=== PATIENT | female | born 1980 | race Caucasian/White ===

== ENCOUNTER 2018-06-13 15:42 | Outpatient (CLI) | payer MEDICAID, SELFPAY ==
--- NOTE | 2018-06-13 16:15 | DI.RAD_ITS ---
SYMPTOM/DIAGNOSIS: WORSENING BRONCHITIS IN SMOKER, LOWER RESPIRATORY TRACT INFECTION, J22 PA AND LATERAL CHEST: The lungs are free of infiltrate. There is no pleural effusion. The cardiovascular structures are intact. SUMMARY: There is no evidence of acute cardiopulmonary disease.
[2018-06-13 16:31] LABS: Abs Immature Grans 0.02 k/cumm (0.0-0.09); Absolute Basophil Count 0.03 k/cumm (0.0-0.2); Absolute Eosinophil Count 0.04 k/cumm (0.0-0.7); Absolute Lymphocyte Count 3.17 k/cumm (1.2-3.4); Absolute Monocyte Count 0.64 k/cumm (0.11-0.7); Absolute Neutrophil Count 6.77 k/cumm (1.2-6.7); Basophils % 0.3; Eosinophils % 0.4; HCT 39.2 % (36.0-46.0); HGB 13.5 g/dL (12.0-15.5); Immature Grans % 0.2; Lymphocytes % 29.7; Mean Corp. HGB Concentration 34.4 g/dL (32.0-36.0); Mean Corpuscular Hemoglobin 31.6 pg (27.0-33.0); Mean Corpuscular Volume 91.8 fL (80-95); Mean Platelet Volume 10.1 fL (8.0-11.0); Neutrophils % 63.4; Platelet Count 235 x1000/uL (130-400); RBC 4.27 m/cumm (4.00-5.20); White Blood Cell Count 10.67 k/cumm (4.4-10.8)
== END 2018-06-13 16:02 ==
PROVIDERS: PCP Nurse Practitioner Family; Visit Provider Family Medicine
DX: J22 Unspecified acute lower respiratory infection (principal); F17.200 Nicotine dependence, unspecified, uncomplicated
CPT/HCPCS: 36415; 71046; 85025

== ENCOUNTER 2018-09-04 15:52 | Emergency (ER) | payer MEDICAID, SELFPAY ==
[2018-09-04 16:01] VITALS: BP 140/71; PULSE 76; RESP 16; TEMP 37.6; O2SAT 98
--- NOTE | 2018-09-04 16:32 | ED.GENADUL_ITS ---
Discharge Plan Disposition Patient Disposition: HOME Condition: Stable Discharge Details Chief Complaint: RespSymp Clinical Impression: Acute serous otitis media of right ear, Allergic rhinitis, Smoker Primary Care Provider: Carol Johnson ED Provider: Justice Packer Home Meds and New Rx's Prescriptions: Continued benzonatate 100 mg capsule 100 - 200 mg PO TID PRN (Reason: cough) Qty: 60 RF: 0 fluticasone 50 mcg/actuation spray,suspension 2 spray NS DAILY PRN (Reason: allergy symptoms) Qty: 19.8 RF: 4 ProAir HFA 90 mcg/actuation HFA aerosol inhaler 2 puff Inhalation Q4H PRN Qty: 1 RF: 11 inhalational spacing device [Space Chamber Plus] 1 EACH spacer Miscellaneous BID Qty: 1 RF: 0 loratadine [Claritin] 10 MG tablet 10 mg PO DAILY Qty: 90 RF: 3 Flovent HFA 12 GM HFA aerosol inhaler 1 puff Inhalation BID Qty: 1 RF: 3 cetirizine [Zyrtec] 10 MG tablet 10 mg PO DAILY RF: 0 bupropion HCl 150 MG tablet extended release 24 hr 300 mg PO DAILY Qty: 180 RF: 4 Discharge Instructions Instructions: Serous Otitis Media (ED) Additional Instructions: Feel free to return to the emergency department for any new or worsening symptoms. The symptoms may include fever chills, drainage from the ear, or any other concerns. Otherwise follow-up with primary care provider or ENT if not improving over the next couple weeks Referrals: Carol Johnson NP [Primary Care Provider] - Vikash Le DO [OSTEOPATHIC DOCTOR] - Discharge Data Discharge Date/Time-TO BE ENTERED AT DEPARTURE: 09/04/18 16:39 Medical Decision Making Patient presenting the emergency department for chief complaint of right ear pain. Patient states that this is been going on for the past 3 weeks. Patient denies any known fever chills but does state she gets hot flashes which she attributes to her partial hysterectomy. Patient had seen primary care provider 3 weeks ago and was placed upon amoxicillin for what she reports as an ear infection but she is coming in due to the fact that she does not feel her symptoms have improved. She does state some irritability and overall malaise. She does also report ongoing allergies and on multiple allergy medications that lead to nasal congestion. Patient is also a smoker. Physical exam shows dullness and fluid behind the right TM otherwise physical exam is unremarkable. No signs of meningitis, mastoiditis, retropharyngeal or peritonsillar abscess. I had thorough discussion with patient about serous otitis media that it feels related to her ongoing nasal congestion, patient was encouraged to continue to use Flonase, nasal saline, and to follow-up with primary care provider or ENT if this persists over the next 2-3 weeks. Patient was informed of warning signs to return such as fever chills, nuchal rigidity, or any significant worsening of symptoms. After discussion of diagnosis and plan of care patient has no further needs, questions, or concerns and states clear understanding to return to the emergency department for any worsening symptoms. HPI General Mode of arrival: ambulatory . Date/Time Provider Initiated Documentation: 09/04/18 16:05 . Limitations to Documentation: no limitations . Information obtained by: patient and RN notes reviewed . History of Present Illness 37 year old F presents to the emergency department with the chief complaint of right ear pain, described as moderate, with intensity rated at 5. Quality is described as aching, and is localized to the face (right ear). Patient reports no radiation. Patient started experiencing this week(s) (3) and it has been constant. No relieving factors improve symptom(s), No exacerbating factors reported . Patient did receive the following treatments prior to arrival, none Related Data Home Medications Medication Instructions Recorded Confirmed inhalational spacing device [Space #1 09/15/17 07/26/18 Chamber Plus] loratadine [Claritin] 10 mg PO DAILY #90 tab-cap 09/15/17 09/04/18 Flovent HFA 1 puff INHALATION BID #1 inhaler 11/16/17 09/04/18 cetirizine [Zyrtec] 10 mg PO DAILY tab-cap 12/30/17 09/04/18 bupropion HCl 300 mg PO DAILY #180 tab-cap 01/17/18 09/04/18 albuterol sulfate HFA 90 2 puff INHALATION Q4H PRN #1 06/06/18 09/04/18 mcg/actuation aerosol inhaler inhaler benzonatate 100 mg capsule 100 - 200 mg PO TID PRN #60 cap 12/07/18 01/21/19 fluticasone 50 mcg/actuation nasal 2 spray NS DAILY PRN #19.8 gm 07/21/18 09/04/18 spray,suspension Previous Rx's Medication Instructions Recorded loratadine [Claritin] 10 mg PO DAILY #90 tab-cap 09/15/17 Flovent HFA 1 puff INHALATION BID #1 inhaler 11/16/17 bupropion HCl 300 mg PO DAILY #180 tab-cap 01/17/18 albuterol sulfate HFA 90 2 puff INHALATION Q4H PRN #1 06/06/18 mcg/actuation aerosol inhaler inhaler benzonatate 100 mg capsule 100 - 200 mg PO TID PRN #60 cap 07/21/18 fluticasone 50 mcg/actuation nasal 2 spray NS DAILY PRN #19.8 gm 07/21/18 spray,suspension Allergies Allergy/AdvReac Type Severity Reaction Status Date / Time Influenza Virus Vaccines Allergy Intermediate vomiting Verified 09/04/18 16:05 doxycycline AdvReac Intermediate GI UPSET Verified 09/04/18 16:05 Birch Trees Allergy Mild Uncoded 09/04/18 16:05 Rabbits Allergy Mild Uncoded 09/04/18 16:05 General Stated Complaint: RespSymp WIN: 4 Review of Systems Constitutional Denies body ache(s), Denies chills, Denies fever(s), Reports headache(s) and Reports malaise Eyes Denies eye discharge ENT Reports otalgia, Reports headache(s), Reports nasal congestion, Denies neck pain, Reports post nasal drip, Reports sore throat and Denies throat swelling Cardiovascular Denies chest pain and Denies dyspnea Respiratory Denies chest congestion, Denies cough and Denies dyspnea Musculoskeletal Denies joint swelling and Denies neck pain Integumentary/Breasts Denies rash Neurologic Reports headache(s) Allergic/Immunologic Denies throat swelling [facility] Surgical History Appendectomy (~2004) Arthroplasty of knee (~2005) Cholecystectomy (~2004) Correction, Hammertoe Hysterectomy, Laproscopic (~2005) Family History Mother Essential hypertension Depression Father Essential hypertension Heart disease Hyperlipidemia Chronic obstructive lung disease Asthma Grandfather Neoplasm Brother No problems noted. Grandfather Diabetes Grandmother Kassandra Gehrigs disease Grandmother Hyperlipidemia Daughter Asthma Daughter No problems noted. Social History Smoking/Tobacco Use Status: Current every day Exam Const General: cooperative, comfortable and no acute distress Orientation: alert and awake [facility] Head: normal to inspection, normocephalic and atraumatic Ears: hearing grossly normal bilaterally, external ears normal, TM normal on the left, mastoids normal and TM abnormal dull on the right and with fluid behind the TM on the right General nose exam: external nose normal Face and sinus: no erythema and sinus tenderness frontal and maxillary Mouth: oral mucosae normal, no drooling, no muffled voice and no trismus Throat: posterior oropharynx normal Neck Neck: normal visual inspection, full ROM, no lymphadenopathy, no meningeal signs, trachea midline and supple Resp Effort & Inspection: normal respiratory effort and able to speak in complete sentences Auscultation: clear to auscultation bilaterally Cardio Rate: regular rate Rhythm: regular rhythm Heart Sounds: S1 normal, S2 normal, normal S1 and S2, no click, no gallops, no murmurs and no rubs Skin General skin exam: no rashes or lesions noted and dry skin (warm) Neuro General: alert, awake, oriented x3, gait normal and moves all extremities Cognition: normal cognition Speech: speech normal Course Vital Signs Temperature 37.6 C H 09/04/18 16:01 Pulse 76 09/04/18 16:01 Respiratory Rate 16 09/04/18 16:01 Blood Pressure 140/71 09/04/18 16:01 Pulse Oximetry 98 09/04/18 16:01 Temperature 37.6 C H 09/04/18 16:01 Temperature Source Skin 09/04/18 16:01 Pulse 76 09/04/18 16:01 Respiratory Rate 16 09/04/18 16:01 Respiratory Effort Non-Labored 09/04/18 16:01 Blood Pressure 140/71 09/04/18 16:01 Blood Pressure Position Sitting 09/04/18 16:01 Pulse Oximetry 98 09/04/18 16:01 Oxygen Delivery Method Room Air 09/04/18 16:01 Oxygen Flow Rate 0 09/04/18 16:01 Pain Level 7 09/04/18 16:01
== END 2018-09-04 16:39 | disposition home or self-care (01) ==
PROVIDERS: Emergency Provider Nurse Practitioner Family; PCP Nurse Practitioner Family
DX: H65.01 Acute serous otitis media, right ear (principal); J30.89 Other allergic rhinitis; F17.210 Nicotine dependence, cigarettes, uncomplicated
CPT/HCPCS: 99282

== ENCOUNTER 2019-03-22 08:21 | Outpatient (CLI) | payer MEDICAID, SELFPAY ==
[2019-03-22 09:34] LABS: Anion Gap 7.9 mmol/L (3-11); BUN 11 mg/dL (7-18); CO2 27.1 mmol/L (21.0-32.0); CREATININE 0.94 mg/dL (0.55-1.02); Chloride 105 mmol/L (98-107); Glucose 100 mg/dL (70-100); Potassium 4.2 mmol/L (3.5-5.1); Sodium 140 mmol/L (136-145)
[2019-03-22 10:12] LABS: Calculated LDL 147 mg/dL; Cholesterol 196 mg/dL (50-200); HDL Cholesterol 37 mg/dL (40-60); Triglyceride 60 mg/dL (30-150)
== END 2019-03-22 08:41 ==
PROVIDERS: PCP Nurse Practitioner Family; Visit Provider Nurse Practitioner Family
DX: E78.5 Hyperlipidemia, unspecified (principal)
CPT/HCPCS: 36415; 80048; 80061; 83721

== ENCOUNTER 2019-06-01 10:58 | Outpatient (CLI) | payer MEDICAID, SELFPAY ==
[2019-06-04 11:21] LABS: HBs Antibody, Quant <3.1 mIU/mL; Hep B Surface Ab Negative; Hepatitis B Core Antibody Negative (NEGAT); Hepatitis B Surface Antigen Negative (NEGAT)
== END 2019-06-01 11:18 ==
PROVIDERS: PCP Nurse Practitioner Family; Visit Provider Nurse Practitioner Family
DX: Z11.59 Encounter for screening for other viral diseases (principal)
CPT/HCPCS: 36415; 86704; 86706; 87340

== ENCOUNTER 2019-09-05 13:51 | Outpatient (CLI) | payer MEDICAID, SELFPAY ==
--- NOTE | 2019-09-05 13:47 | DI.RAD_ITS ---
EXAM: XR CHEST 2V PA LATERAL CLINICAL HISTORY: Continued cough despite steriods and abx, R05. TECHNIQUE: 2D digital imaging was performed. COMPARISON: XR CHEST 2V PA LATERAL from 06/13/2018 FINDINGS: LUNGS: Clear. No pleural abnormality seen. HEART: Normal. MEDIASTINUM: Normal. OTHER FINDINGS:Normal. BONE:Normal. IMPRESSION: No acute pulmonary findings.
== END 2019-09-05 14:11 ==
PROVIDERS: PCP Nurse Practitioner Family; Visit Provider Nurse Practitioner Family
DX: R05 Cough (principal); Z79.2 Long term (current) use of antibiotics
CPT/HCPCS: 71046

== ENCOUNTER 2019-12-24 09:45 | Outpatient (CLI) | payer MEDICAID, SELFPAY ==
[2019-12-25 21:08] LABS: COVID-19 RT-PCR UVMMC Result Negative (Negative)
== END 2019-12-24 10:05 ==
PROVIDERS: PCP Nurse Practitioner Family; Visit Provider Nurse Practitioner Family
DX: R53.83 Other fatigue (principal); Z11.59 Encounter for screening for other viral diseases
CPT/HCPCS: U0003

== ENCOUNTER 2020-01-22 03:35 | Outpatient (CLI) | payer MEDICAID, SELFPAY ==
[2020-01-22 08:43] LABS: HCT 41.9 % (36.0-46.0); HGB 14.8 g/dL (12.0-15.5); Mean Corp. HGB Concentration 35.3 g/dL (32.0-36.0); Mean Corpuscular Hemoglobin 31.1 pg (27.0-33.0); Mean Platelet Volume 10.3 fL (8.0-11.0); Platelet Count 243 x1000/uL (130-400); RBC 4.76 m/cumm (4.00-5.20); RBC Distribution Width 12.4 % (11.7-14.6); White Blood Cell Count 9.67 k/cumm (4.4-10.8)
[2020-01-22 09:53] LABS: Anion Gap 10.3 mmol/L (3-11); BUN 9 mg/dL (7-18); CO2 28.7 mmol/L (21.0-32.0); CREATININE 1.02 mg/dL (0.55-1.02); Calcium 8.9 mg/dL (8.5-10.1); Calculated LDL 149 mg/dL (<100); Chloride 103 mmol/L (98-107); Cholesterol 205 mg/dL (<200); Glucose 89 mg/dL (74-106); HDL Cholesterol 34 mg/dL (40-60); Potassium 3.7 mmol/L (3.5-5.1); Sodium 142 mmol/L (136-145); TSH 1.52 uIU/mL (0.36-3.74); Triglyceride 112 mg/dL (<150)
[2020-01-22 10:19] LABS: FREE T4 0.96 ng/dL (0.76-1.46)
== END 2020-01-22 03:55 ==
PROVIDERS: PCP Nurse Practitioner Family; Visit Provider Nurse Practitioner Family
DX: E78.5 Hyperlipidemia, unspecified (principal); R53.83 Other fatigue
CPT/HCPCS: 36415; 80048; 80061; 85027; 84439; 84443

== ENCOUNTER 2020-04-07 13:48 | Outpatient (CLI) | payer MEDICAID, SELFPAY ==
[2020-04-09 21:46] LABS: SARS-CoV-2 RNA Undetected (Undetected); SARS-CoV-2 Specimen Source Nasopharynx
== END 2020-04-07 14:08 ==
PROVIDERS: PCP Nurse Practitioner Family; Visit Provider Nurse Practitioner Family
DX: Z11.59 Encounter for screening for other viral diseases (principal)
CPT/HCPCS: U0003

== ENCOUNTER 2020-05-06 01:11 | Outpatient (CLI) | payer MEDICAID, SELFPAY ==
--- NOTE | 2020-05-06 13:35 | DI.CT_ITS ---
EXAM: CT SINUS WO CLINICAL HISTORY: RECURRENT SINUSITIS. Evaluate for sinusitis. TECHNIQUE: Imaging Protocol: Axial computed tomography images with coronal and sagittal reformatted images were created and reviewed. COMPARISON: No exams were available for comparison FINDINGS: AXIAL IMAGES: Frontal sinuses: Normally aerated. Ethmoid air cells: Normally aerated. Maxillary sinuses: Mild mucosal thickening is seen in the right maxillary sinus. There is a mucous r etention cyst or polyp in the left maxillary sinus. Sphenoid sinus: Mild mucosal thickening in the left sphenoid sinus. Ostiomeatal complexes: Patent. Osseous nasal septum: Mildly deviates to the right. Visualized regional soft tissues: No acute findings. Orbits: Unremarkable. Bones: There is a thin septation in the left maxillary sinus. Mastoid Air Cells: Normally aerated. IMPRESSION: Mild mucosal thickening in the maxillary and sphenoid sinuses. No air-fluid levels. RADIATION DOSE DELIVERED: 113.61mGy.cm Total DLP DATA REPOSITORY: All CT scans at this facility are submitted to the National Radiology Data Registry (NRDR) Dose Index Registry (DIR) with the [employer] (ACR). RADIATION OPTIMIZATION: All CT scans at this facility use at least one of these dose optimization te chniques: automated exposure control; mA and/or kV adjustment per patient size (includes targeted exa ms where dose is matched to clinical indication); or iterative reconstruction.
== END 2020-05-06 01:31 ==
PROVIDERS: PCP Nurse Practitioner Family; Visit Provider Otolaryngology
DX: J32.8 Other chronic sinusitis (principal)
CPT/HCPCS: 70486

== ENCOUNTER 2020-06-04 08:17 | Outpatient (CLI) | payer MEDICAID, SELFPAY ==
[2020-06-06 16:42] LABS: Patient Race White; SARS-CoV-2 RNA Undetected (Undetected); SARS-CoV-2 Specimen Source Nasal
== END 2020-06-04 08:37 ==
PROVIDERS: PCP Nurse Practitioner Family; Visit Provider Nurse Practitioner Family
DX: Z11.59 Encounter for screening for other viral diseases (principal)
CPT/HCPCS: U0003

== ENCOUNTER 2020-07-03 03:05 | Outpatient (CLI) | payer MEDICAID, SELFPAY ==
[2020-07-07 18:17] LABS: Patient Race White; SARS-CoV-2 RNA Undetected (Undetected); SARS-CoV-2 Specimen Source Nasal
== END 2020-07-03 03:25 ==
PROVIDERS: PCP Nurse Practitioner Family; Visit Provider Nurse Practitioner Family
DX: Z11.59 Encounter for screening for other viral diseases (principal)
CPT/HCPCS: U0003

== ENCOUNTER 2020-09-06 01:08 | Emergency (ER) | payer MEDICAID, SELFPAY ==
--- NOTE | 2020-09-06 01:09 | W.ED.GENAD ---
Discharge Plan Disposition Patient Disposition: HOME Condition: Good Discharge Details Clinical Impression: Ear infection Primary Care Provider: Carol Johnson ED Provider: Kyler Zapata [place] Meds and New Rx's Prescriptions: New amoxicillin-pot clavulanate [Augmentin] 875-125 mg tablet 1 tab PO BID Qty: 19 RF: 0 Continued sertraline 100 mg tablet 200 mg PO DAILY Qty: 180 RF: 4 bupropion HCl [Wellbutrin XL] 150 mg tablet extended release 24 hr 150 mg PO QAM Qty: 90 RF: 0 loratadine [Claritin] 10 mg tablet 10 mg PO DAILY Qty: 90 RF: 4 budesonide-formoterol 160-4.5 mcg/actuation HFA aerosol inhaler 2 inh IH BID Qty: 10.2 RF: 4 albuterol sulfate 1.25 mg/3 mL solution for nebulization 1.25 mg IH Q6H PRN (Reason: shortness of breath or wheezing) Qty: 75 RF: 4 montelukast [Singulair] 10 mg tablet 10 mg PO QPM Qty: 90 RF: 4 fluticasone propionate 50 mcg/actuation spray,suspension 2 spray intranasal DAILY PRN (Reason: allergy symptoms) Qty: 15.8 RF: 4 omeprazole 40 mg Capsule,Delayed Release(Dr/Ec) 40 mg PO DAILY RF: 0 Discharge Instructions Additional Instructions: Please use your eardrops, 4 drops every 6 hours for the next 7 days. Take the Augmentin twice a day as directed. Use yogurt and probiotic to help prevent overgrowth and diarrhea. Follow-up with primary care next week if no improvement. Otherwise follow-up with ear nose and throat next month as planned. Return to ED if severe headache, mental status change, facial pain swelling. Referrals: Carol Johnson, PACKAGE CLERK [Primary Care Provider] - Medical Decision Making Right ear with pain with manipulation of external right ear and some edema in the canal. Also opacified and bulging TM with large tender lymph node below the ear. Has already been on a azithromycin. Has Cortisporin eardrops at home. Has ENT follow-up next month. Will start Augmentin given recent antibiotic use and chronic nature of this ear problem for a month. We will also have her restart Cortisporin. Follow-up with primary care next week if not better. Otherwise follow-up with ENT next month as planned. Return to ED if worse. HPI General Mode of arrival: ambulatory. Date/Time Provider Initiated Documentation: 09/06/20 01:09. Limitations to Documentation: no limitations. Information obtained by: patient and RN notes reviewed. HPI Narrative: Patient presents to the ED with right ear pain. She states she has been having problems for the last month. She has previous history of ear infections. Was put on a azithromycin a couple weeks ago by PCP. Seemingly got better but in the last few days has had increasing pain. Now has pain down the side of her neck. Low-grade fevers on and off. No sinus congestion. No sore throat. No cough or shortness of breath. Has appointment to see ear nose and throat at [facility] next month. Came to ED tonight because of increasing pain. Related Data Home Medications Medication Instructions Recorded Confirmed albuterol sulfate 1.25 mg/3 mL 1.25 mg IH Q6H PRN #75 ml 05/24/19 09/06/20 solution for nebulization montelukast 10 mg tablet 10 mg PO QPM #90 tab 10/09/19 09/06/20 budesonide-formoterol HFA 160 2 inh IH BID #10.2 gm 01/20/20 09/06/20 mcg-4.5 mcg/actuation aerosol inhaler loratadine 10 mg tablet 10 mg PO DAILY #90 tab-cap 01/20/20 09/06/20 sertraline 100 mg tablet 200 mg PO DAILY #180 tab 05/05/20 09/06/20 fluticasone propionate 50 2 spray INTRANASAL DAILY PRN #15.8 06/16/20 09/06/20 mcg/actuation nasal ml spray,suspension bupropion HCl 150 mg 24 hr tablet, 150 mg PO QAM #90 tab 08/14/20 09/06/20 extended release amoxicillin-pot clavulanate 1 tab PO BID #19 tab 09/06/20 [Augmentin] omeprazole 40 mg PO DAILY 09/06/20 09/06/20 Previous Rx's Medication Instructions Recorded albuterol sulfate 1.25 mg/3 mL 1.25 mg IH Q6H PRN #75 ml 05/24/19 solution for nebulization montelukast 10 mg tablet 10 mg PO QPM #90 tab 10/09/19 budesonide-formoterol HFA 160 2 inh IH BID #10.2 gm 01/20/20 mcg-4.5 mcg/actuation aerosol inhaler loratadine 10 mg tablet 10 mg PO DAILY #90 tab-cap 01/20/20 sertraline 100 mg tablet 200 mg PO DAILY #180 tab 05/05/20 fluticasone propionate 50 2 spray INTRANASAL DAILY PRN #15.8 06/16/20 mcg/actuation nasal ml spray,suspension bupropion HCl 150 mg 24 hr tablet, 150 mg PO QAM #90 tab 08/14/20 extended release amoxicillin-pot clavulanate 1 tab PO BID #19 tab 09/06/20 [Augmentin] Allergies Allergy/AdvReac Type Severity Reaction Status Date / Time doxycycline AdvReac Intermediate GI UPSET Verified 09/06/20 01:19 Influenza Virus Vaccines AdvReac Intermediate vomiting Verified 09/06/20 01:19 Birch Trees Allergy Mild Uncoded 09/06/20 01:19 Rabbits Allergy Mild Uncoded 09/06/20 01:19 General WIN: 4 Review of Systems Narrative: As documented in HPI otherwise negative as below. Const: no chills, weakness Resp: no cough, SOB, pleuritic pain CV: no CP, diaphoresis, edema, syncope GI: no abdominal pain, nausea, vomiting, diarrhea Neuro: no headache, numbness, focal weakness, confusion PFSH Medical History Allergic rhinitis Cigarette smoker Depression Gastroesophageal reflux disease Generalized anxiety disorder Hyperlipidemia Moderate persistent asthma Scoliosis Surgical History History of toe surgery (~01/2017) Right hallux exostectomy S/P appendectomy (08/12/05) S/P cholecystectomy (08/12/05) S/P hammer toe correction Right 5th toe S/P laparoscopic assisted vaginal hysterectomy (LAVH) (06/30/06) For AUB S/P left knee arthroscopy (~2005) x 2 Family History Mother Essential hypertension Depression Pernicious anemia Father , At 57 of heart failure Essential hypertension Heart disease Chronic obstructive lung disease Asthma Hyperlipidemia Brother Heart disease Daughter Asthma Daughter No problems noted. Maternal Grandfather Prostate cancer Maternal Grandmother , in her 60s Kassandra Gehrigs disease Paternal Grandfather , in his 50s Type 2 diabetes mellitus Paternal Grandmother , in her 60s Chronic obstructive lung disease Hyperlipidemia Social History Smoking/Tobacco Use Status: Current every day Tobacco Type: cigarettes Smoking packs per day: 0.5 Smoking cigarettes per day: 10.0 Years smoked: 24 Smoking pack-years: 12.00 Quit status: considering quitting Smoking risk assessment performed?: Yes Alcohol Intake: never Drug use: Never Substance use type: unknown Caregiver/Support person: No Household members: spouse and children Pets and animals: Yes Pets and animals: cat(s) and dog(s) Sexually active: Yes Current gender identity: female Duration: decline to answer Frequency: decline to answer [place]: No preference Special trinidad needs: No Do you feel safe at home: Yes Do you feel safe in your relationship?: Yes Female Reproductive History Menstrual Menopause type: surgical History History 2 Para Hx # Term Pregnancies Multiple births Hx # Pregnancies Ectopic pregnancies AB induced Hx Number of Living Children 2 AB spontaneous Exam Narrative Exam Narrative: Const: WDWN female in NAD. HEENT: NC/AT. Normal facial exam. Right external ear normal. Right ear pain with manipulation of pinna. Right canal mildly edematous. Right TM opacified with no landmarks and bulging but no erythema. Left ear, canal, TM normal. Oropharynx normal. Eyes: Normal conjunctiva and sclera. Neck: Supple. Trachea midline. 1 cm tender lymph node right neck just below the ear. Lungs: Normal respiratory effort. Neuro: A+O x 3. Normal speech, mentation, gait. Cranial nerves II - XII grossly intact. No gross motor or sensory deficit. Skin: Warm and dry without erythema or rash.
[2020-09-06 01:11] VITALS: BP 103/63; PULSE 69; RESP 16; TEMP 37.1; O2SAT 99
[2020-09-06] MEDS: Amoxicillin 875/Clav. 125 TAB PO (01:38)
== END 2020-09-06 01:40 | disposition home or self-care (01) ==
LOC: ER 01:37
PROVIDERS: Emergency Provider Emergency Medicine; PCP Nurse Practitioner Family
DX: H66.91 Otitis media, unspecified, right ear (principal)
CPT/HCPCS: 99283

== ENCOUNTER 2020-10-27 11:08 | Outpatient (REF) | payer MEDICAID, SELFPAY ==
[2020-10-28 10:37] LABS: Campylobacter PCR Negative (Negative); Salmonella PCR Negative (Negative); Shiga Toxin PCR Negative (Negative); Shigella/Enteroinvasive Ecoli Negative (Negative)
== END 2020-10-27 11:09 | disposition home or self-care (01) ==
LOC: LBN 11:08
PROVIDERS: PCP Nurse Practitioner Family; Visit Provider Nurse Practitioner Family
DX: R19.7 Diarrhea, unspecified (principal)
CPT/HCPCS: 87329; 87493; 87505

== ENCOUNTER 2020-10-28 02:54 | Outpatient (CLI) | payer MEDICAID, SELFPAY ==
[2020-10-28 15:03] LABS: Abs Immature Grans 0.03 10^3/uL (0.0-0.06); Absolute Basophil Count 0.06 10^3/uL (0.0-0.2); Absolute Eosinophil Count 0.03 10^3/uL (0.0-0.7); Absolute Lymphocyte Count 2.48 10^3/uL (1.2-3.4); Absolute Monocyte Count 0.77 10^3/uL (0.1-0.8); Basophils % 0.6; Eosinophils % 0.3; HCT 42.7 % (36.0-46.0); HGB 14.7 g/dL (11.2-15.7); Immature Grans % 0.3; MCH 31.9 pg (27.0-33.0); MCHC 34.4 % (32.0-36.0); MCV 92.6 fL (80-95); MPV 10.4 fL (8.0-11.0); Monocytes % 7.1; Neutrophils % 68.7; Nucleated RBC 0 %; Platelet Count 247 10^3/uL (130-400); RBC 4.61 10^6/uL (3.93-5.22); RDW 12.8 % (11.7-14.6); RDW-SD 43.6 fL; WBC 10.77 10^3/uL (4.4-10.8)
[2020-10-28 16:59] LABS: ALT 26 U/L (14-59); AST 13 U/L (15-37); Albumin 4.1 g/dL (3.4-5.0); Alkaline Phosphatase 84 U/L (46-116); Anion Gap 9.2 mmol/L (3-11); BUN 12 mg/dL (7-18); Bilirubin, Total 0.3 mg/dL (0.2-1.0); CO2 25.8 mmol/L (21.0-32.0); Calcium 9.1 mg/dL (8.5-10.1); Chloride 104 mmol/L (98-107); Glucose 86 mg/dL (74-106); Potassium 4.1 mmol/L (3.5-5.1); Sodium 139 mmol/L (136-145); Total Protein 7.5 g/dL (6.4-8.2)
== END 2020-10-28 02:55 | disposition home or self-care (01) ==
LOC: LBO 02:54
PROVIDERS: PCP Nurse Practitioner Family; Visit Provider Nurse Practitioner Family
DX: R19.7 Diarrhea, unspecified (principal)
CPT/HCPCS: 36415; 80053; 85025

== ENCOUNTER 2020-11-11 15:37 | Outpatient (REF) | payer MEDICAID, SELFPAY ==
[2020-11-11 17:32] LABS: C Diff PCR Negative (Negative)
== END 2020-11-11 15:38 | disposition home or self-care (01) ==
LOC: LBN 15:37
PROVIDERS: PCP Nurse Practitioner Family; Visit Provider Nurse Practitioner Family
DX: R19.7 Diarrhea, unspecified (principal)
CPT/HCPCS: 87493

== ENCOUNTER 2021-08-17 13:53 | Outpatient (REF) | payer MEDICAID, SELFPAY ==
[2021-08-19 17:51] LABS: COVID-19 RT-PCR UVMMC Result Negative (Negative)
== END 2021-08-17 13:54 | disposition home or self-care (01) ==
LOC: LBN 13:53
PROVIDERS: PCP Nurse Practitioner Family; Visit Provider Family Medicine
DX: J06.9 Acute upper respiratory infection, unspecified (principal); Z20.822 Contact with and (suspected) exposure to COVID-19
CPT/HCPCS: U0003

== ENCOUNTER 2021-11-12 04:00 | Outpatient (CLI) | payer MEDICAID, SELFPAY ==
[2021-11-12 08:18] LABS: Hemoglobin A1C 5.4 % (<5.7)
[2021-11-12 09:05] LABS: Anion Gap 8.4 mmol/L (3-11); BUN 8 mg/dL (7-18); CO2 26.6 mmol/L (21.0-32.0); Calcium 8.4 mg/dL (8.5-10.1); Chloride 105 mmol/L (98-107); Glucose 95 mg/dL (74-106); Potassium 3.9 mmol/L (3.5-5.1); Sodium 140 mmol/L (136-145)
[2021-11-12 14:52] LABS: Calculated LDL 182 mg/dL (<100); Cholesterol 233 mg/dL (<200); HDL Cholesterol 33 mg/dL (40-60); Triglyceride 92 mg/dL (<150)
== END 2021-11-12 04:01 | disposition home or self-care (01) ==
LOC: LBO 04:00
PROVIDERS: PCP Nurse Practitioner Family; Visit Provider Nurse Practitioner Family
DX: E78.5 Hyperlipidemia, unspecified (principal)
CPT/HCPCS: 36415; 80048; 80061; 83036

== ENCOUNTER → 2022-01-27 01:24 | Outpatient (CLI) | payer MEDICAID, SELFPAY | PROVIDERS: PCP Nurse Practitioner Family; Visit Provider Nurse Practitioner ==

== ENCOUNTER 2022-08-21 12:23 | Emergency (ER) | payer MEDICAID, SELFPAY ==
--- NOTE | 2022-08-21 12:52 | ED.GENADUL_ITS ---
Discharge Plan Disposition Patient Disposition: Home Condition: Stable Discharge Details Clinical Impression: Sinusitis, Acute right otitis media Primary Care Provider: Carol Johnson ED Provider: Areli Romo Home Meds and New Rx's Prescriptions: New amoxicillin-pot clavulanate 875-125 mg tablet 1 tab PO BID 7 Days Qty: 14 0RF Rx Instructions: Take 1 tablet twice daily for the next 7 days Continued amlodipine 5 mg tablet 5 mg PO DAILY Qty: 90 3RF escitalopram oxalate 10 mg tablet 10 mg PO DAILY Qty: 90 0RF montelukast [Singulair] 10 mg tablet 10 mg PO QPM Qty: 90 3RF pantoprazole 20 mg tablet,delayed release (DR/EC) 20 mg PO DAILY Qty: 90 4RF levalbuterol tartrate [Xopenex HFA] 45 mcg/actuation HFA aerosol inhaler 2 inh IH Q6H PRN (Reason: shortness of breath) Qty: 15 4RF fluticasone furoate-vilanterol [Breo Ellipta] 200-25 mcg/dose blister with device 1 inh inhalation DAILY Qty: 60 4RF fluticasone propionate 50 mcg/actuation spray,suspension 2 spray intranasal DAILY PRN (Reason: allergy symptoms) Qty: 15.8 3RF Rx Instructions: administer into each nostril loratadine [Claritin] 10 mg tablet 10 mg PO DAILY Qty: 90 3RF Rx Instructions: Take 1 tablet daily No Action amoxicillin-pot clavulanate 875-125 mg tablet 1 tab PO BID Qty: 10 0RF Discharge Instructions Instructions: Sinusitis (ED), Ear Infection (ED) Additional Instructions: The COVID, influenza, RSV swab is negative. I do suspect you may have a sinus infection and or combined with an ear infection. Please take the antibiotic with yogurt or probiotic twice daily for the next 7 days as directed. You are given the first dose here in the department. You may also try [id number] Flonase or fluticasone nasal spray. Please take Tylenol or Ibuprofen with food every 4-6 hours as needed for pain and swelling. Follow up with primary care provider in 3-5 days. Return to ED sooner if any wor sening or concerns. Increase oral fluids. Referrals: Carol Johnson, [employer] TECHNICIAN [Primary Care Provider] - 1 week Medical Decision Making 41-year-old female presents to the ER with a week long history of cough with yellow to greenish productive sputum, sinus fullness, low-grade fever, mild right ear pain and sore throat. She also endorses some lower back pain. She reports that she has had multiple negative rapid COVID and flu swabs. She has been taking Tylenol [id number] with little to no relief. On exam she does have erythemic right tympanic membrane due to her symptoms I do also suspect probable sinusitis. Patient given Augmentin here in the department. Fluvid swab ordered, Augmentin given for probable sinusitis with right otitis media. Discussed home care with patient and lab results she verbalized understanding. This text was generated using [employer] dictation system, please disregard any oddities of phrase or misspellings. HPI General Mode of arrival: ambulatory . Date/Time Provider Initiated Documentation: 08/21/22 12:42 . Limitations to Documentation: no limitations . Information obtained by: patient, RN notes reviewed and old records reviewed . HPI Narrative: 41-year-old female presents to the ER with a week long history of cough with yellow to greenish productive sputum, sinus fullness, low-grade fever, mild right ear pain and sore throat. She also endorses some lower back pain. She reports that she has had multiple negative rapid COVID and flu swabs. She has been taking Tylenol [id number] with little to no relief. She does have a past medical history of hyperlipidemia, anxiety, moderate persistent asthma, GERD, hypertension and cigarette smoking. Related Data Home Medications Medication Instructions Recorded Confirmed pantoprazole 20 mg tablet,delayed 20 mg PO DAILY #90 tabs 11/11/21 08/17/22 release montelukast 10 mg tablet 10 mg PO QPM #90 tabs 11/26/21 08/17/22 (Singulair) amoxicillin 875 mg-potassium 1 tab PO BID #10 tabs 01/25/22 01/25/22 clavulanate 125 mg tablet levalbuterol tartrate 45 2 inh inhalation Q6H PRN shortness 02/03/22 08/17/22 mcg/actuation aerosol inhaler of breath #15 grams (Xopenex HFA) fluticasone furoate 200 1 inh inhalation DAILY #60 ea 04/01/22 08/17/22 mcg-vilanterol 25 mcg/dose inhalation powder (Breo Ellipta) fluticasone propionate 50 2 spray intranasal DAILY PRN 06/24/22 08/17/22 mcg/actuation nasal allergy symptoms #15.8 mL spray,suspension loratadine 10 mg tablet (Claritin) 10 mg PO DAILY #90 tab-caps 06/24/22 08/17/22 amlodipine 5 mg tablet 5 mg PO DAILY #90 tabs 07/19/22 08/17/22 escitalopram oxalate 10 mg tablet 10 mg PO DAILY #90 tabs 07/19/22 08/17/22 amoxicillin 875 mg-potassium 1 tab PO BID sinusitis 7 days #14 08/21/22 clavulanate 125 mg tablet tabs Previous Rx's Medication Instructions Recorded pantoprazole 20 mg tablet,delayed 20 mg PO DAILY #90 tabs 11/11/21 release montelukast 10 mg tablet 10 mg PO QPM #90 tabs 11/26/21 (Singulair) amoxicillin 875 mg-potassium 1 tab PO BID #10 tabs 01/25/22 clavulanate 125 mg tablet levalbuterol tartrate 45 2 inh inhalation Q6H PRN shortness 02/03/22 mcg/actuation aerosol inhaler of breath #15 grams (Xopenex HFA) fluticasone furoate 200 1 inh inhalation DAILY #60 ea 04/01/22 mcg-vilanterol 25 mcg/dose inhalation powder (Breo Ellipta) fluticasone propionate 50 2 spray intranasal DAILY PRN 06/24/22 mcg/actuation nasal allergy symptoms #15.8 mL spray,suspension loratadine 10 mg tablet (Claritin) 10 mg PO DAILY #90 tab-caps 06/24/22 amlodipine 5 mg tablet 5 mg PO DAILY #90 tabs 07/19/22 escitalopram oxalate 10 mg tablet 10 mg PO DAILY #90 tabs 07/19/22 amoxicillin 875 mg-potassium 1 tab PO BID sinusitis 7 days #14 08/21/22 clavulanate 125 mg tablet tabs Allergies Allergy/AdvReac Type Severity Reaction Status Date / Time doxycycline AdvReac Intermediate GI UPSET Verified 08/17/22 11:00 Influenza Virus Vaccines AdvReac Intermediate vomiting Verified 08/17/22 11:00 Birch Trees Allergy Mild Uncoded 08/17/22 11:00 Rabbits Allergy Mild Uncoded 08/17/22 11:00 General Stated Complaint: RespSymp WIN: 3 Review of Systems All systems reviewed & are unremarkable except as noted in HPI and below ENT Ears, Nose, Mouth, and Throat: Reports as per HPI, Denies ear discharge, Reports otalgia, Reports nasal congestion, Reports sinus pain, Reports sinus pressure, Reports sore throat and Denies throat swelling Cardiovascular Cardiovascular: Denies chest pain, Denies leg edema, Denies dyspnea, Denies dyspnea on exertion and Denies orthopnea Respiratory Respiratory: Reports change in phlegm color, Reports cough, Reports excessive phlegm production, Denies dyspnea and Denies dyspnea on exertion Gastrointestinal Gastrointestinal: Denies diarrhea, Denies nausea and Denies vomiting Allergic/Immunologic Allergic/Immunologic: Denies throat swelling PFSH All Active Problems (Updated 08/21/22 @ 13:53 by Areli Romo NP) Sinusitis (Acute) Acute right otitis media (Acute) Chronic right hip pain (Acute) Essential hypertension (Chronic) Cigarette smoker (Chronic) Gastroesophageal reflux disease (Chronic) Moderate persistent asthma (Chronic) Generalized anxiety disorder (Chronic) Hyperlipidemia (Chronic) Allergic rhinitis (Chronic) Medical History Depression Scoliosis Surgical History History of toe surgery (~01/2017) Right hallux exostectomy S/P appendectomy (08/12/05) S/P cholecystectomy (08/12/05) S/P hammer toe correction Right 5th toe S/P laparoscopic assisted vaginal hysterectomy (LAVH) (06/30/06) For AUB S/P left knee arthroscopy (~2005) x 2 Family History Mother Essential hypertension Depression Pernicious anemia Father , At 57 of heart failure Essential hypertension Heart disease Chronic obstructive lung disease Asthma Hyperlipidemia Brother Heart disease Daughter Asthma Daughter No problems noted. Maternal Grandfather Prostate cancer Maternal Grandmother , in her 60s Kassandra Gehrigs disease Paternal Grandfather , in his 50s Type 2 diabetes mellitus Paternal Grandmother , in her 60s Chronic obstructive lung disease Hyperlipidemia Social History Smoking/Tobacco Use Status: Former Tobacco Use Quit status: not considering quitting Second Hand Exposure: Yes Smoking risk assessment performed?: Yes Alcohol Intake: never Drug use: Never Substance use type: unknown Caregiver/Support person: No Household members: significant other Housing: house Communication Needs: None Do you need help understanding health information?: Never Pets and animals: Yes Pets and animals: cat(s) and dog(s) Sexually active: Yes Do you think of yourself as: straight/heterosexual Current gender identity: female What is your relationship status?: living with partner How often do you talk on the phone with friends or family?: three or more times per week How often do you get together with friends or relatives?: three or more times per week How often do you attend oriental orthodox or jewish services?: decline to answer Do you belong to any clubs or organized social groups?: no Panel score (0-1 are the most socially isolated patients): 2 What type of physical activity do you participate in: other Details: Work Special daina needs: No Seatbelt use: always Helmet use: Yes Helmet use: always Drive 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 Appears stated age. Normal body habitus. Head: Normocephalic, no trauma. Eyes: Pupils PERRL, Red reflex noted, EOM's intact. Eyelids symmetrical without lesions, discharge, or swelling. ENT: Right tympanic membrane erythemic, slightly bulging with effusion, left TM retracted no erythema, external ear normal to inspection, no mastoid TTP, swelling, or erythema, Nasal turbinates slightly boggy no nasal discharge. Normal dentition, Posterior pharynx erythemic with cobblestone appearance, no exudate. Chest: RRR, Normal S1, S2, distal pulses intact. Resp: Lungs clear to auscultation bilaterally, no wheezes, rales, or rhonchi. Abdomen: Soft, non-distended Musculoskeletal: Normal gait, 5/5 strength to all four extremities. Skin: No suspicious rashes or lesions. Capillary refill less than 2 sec. Course Vital Signs Vital signs: Respiratory Effort 08/21/22 12:37 Respiratory Depth Normal 08/21/22 12:37 Oxygen Delivery Method Room Air 08/21/22 12:31 Oxygen Flow Rate 0 08/21/22 12:31 Pain Level 0 08/21/22 12:31
[2022-08-21] MEDS: Amoxicillin 875/Clav. 125 TAB PO (13:01)
[2022-08-21 13:43] LABS: COVID-19 PCR Negative (Negative); Influenza A PCR Negative (Negative); Influenza B PCR Negative (Negative); RSV PCR Negative (Negative)
[2022-08-21 13:44] LABS: Source Nasopharynx
== END 2022-08-21 14:01 | disposition home or self-care (01) ==
PROVIDERS: Emergency Provider Registered Nurse Emergency; PCP Nurse Practitioner Family
DX: J32.9 Chronic sinusitis, unspecified (principal); H65.92 Unspecified nonsuppurative otitis media, left ear; M54.50 Low back pain, unspecified; Z20.822 Contact with and (suspected) exposure to COVID-19
CPT/HCPCS: 87637; 99283; 99284

== ENCOUNTER 2022-08-31 03:32 | Outpatient (CLI) | payer MEDICAID, SELFPAY ==
[2022-08-31 12:44] LABS: Anion Gap 8.5 mmol/L (3-11); BUN 10 mg/dL (7-18); CO2 28.5 mmol/L (21.0-32.0); CREATININE 0.8 mg/dL (0.55-1.02); Calcium 9.3 mg/dL (8.5-10.1); Calculated LDL 143 mg/dL (<100); Chloride 103 mmol/L (98-107); Cholesterol 197 mg/dL (<200); Estimated GFR 94.28 (mL/min/1.73m2); Glucose 90 mg/dL (74-106); HDL Cholesterol 38 mg/dL (40-60); Potassium 3.8 mmol/L (3.5-5.1); Sodium 140 mmol/L (136-145); Triglyceride 82 mg/dL (<150)
== END 2022-08-31 03:33 | disposition home or self-care (01) ==
LOC: LOS 03:32
PROVIDERS: PCP Nurse Practitioner Family; Visit Provider Nurse Practitioner Family
DX: E78.5 Hyperlipidemia, unspecified (principal); I10 Essential (primary) hypertension
CPT/HCPCS: 36415; 80048; 80061

== ENCOUNTER 2023-02-24 11:56 | Emergency (ER) | payer MEDICAID, SELFPAY ==
[2023-02-24 12:00] VITALS: BP 142/97; PULSE 81; RESP 18; TEMP 37.3; O2SAT 100
--- NOTE | 2023-02-24 12:45 | DI.US_ITS ---
Exam(s) US PELVIS TRANSVAGINAL EXAM: US PELVIS TRANSVAGINAL CLINICAL HISTORY: pelvic pain TECHNIQUE: Ultrasound of the pelvis was performed both transabdominal and transvaginal. COMPARISON: No exams were available for comparison FINDINGS: UTERUS: Uterus is surgically absent. RIGHT OVARY: Measures 2.3 x 1.1 x 2.5 cm No significant cysts nor masses evident in the right ovary. LEFT OVARY: Measures 0.6 x 1.6 x 1.9 cm Contains a 1.8 by 1.2 cm cyst. No surrounding fluid. CUL-DE-SAC: No free fluid evident. IMPRESSION: 1. Uterus is surgically absent. 2. There is a 2 cm follicular cyst in left ovary. No solid ovarian masses. No extraovarian adnexal masses. 3. No free fluid evident in the adnexal regions and cul-de-sac. Called by myself to ER physician. DATA REPOSITORY:
[2023-02-24 13:15] LABS: Abs Immature Grans 0.04 10^3/uL (0.0-0.06); Absolute Basophil Count 0.08 10^3/uL (0.0-0.2); Absolute Eosinophil Count 0.05 10^3/uL (0.0-0.7); Absolute Lymphocyte Count 2.26 10^3/uL (1.2-3.4); Absolute Monocyte Count 0.54 10^3/uL (0.1-0.8); Absolute Neutrophil Count 6.49 10^3/uL (1.2-6.7); Basophils % 0.8; Eosinophils % 0.5; HGB 16.2 g/dL (11.2-15.7); Immature Grans % 0.4; Lymphocytes % 23.9; MCH 31.4 pg (27.0-33.0); MCHC 34.5 % (32.0-36.0); MCV 91 fL (80-95); MPV 10.1 fL (8.0-11.0); Monocytes % 5.7; Neutrophils % 68.7; Platelet Count 293 10^3/uL (130-400); RBC 5.16 10^6/uL (3.93-5.22); RDW 12.6 % (11.7-14.6); RDW-SD 42.7 fL; WBC 9.46 10^3/uL (4.4-10.8)
[2023-02-24 13:18] LABS: Bilirubin Negative (Negative); Blood Negative (Negative); Clarity Clear (Clear); Glucose Negative (Negative); Ketones Negative (Negative); Leukocyte Esterase Negative (Negative); Nitrite Negative (Negative); Urobilinogen 0.2 mg/dL (Up to 0.2); pH 5.5 (5-8)
[2023-02-24 13:28] LABS: ALT 21 U/L (14-59); AST 19 U/L (15-37); Albumin 4.6 g/dL (3.4-5.0); Alkaline Phosphatase 99 U/L (46-116); Anion Gap 11.2 mmol/L (3-11); BUN 6 mg/dL (7-18); Bilirubin, Total 0.4 mg/dL (0.2-1.0); CO2 27.8 mmol/L (21.0-32.0); Calcium 9.2 mg/dL (8.5-10.1); Chloride 102 mmol/L (98-107); Estimated GFR 71.69 (mL/min/1.73m2); Glucose 77 mg/dL (74-106); Potassium 3.5 mmol/L (3.5-5.1); Sodium 141 mmol/L (136-145)
--- NOTE | 2023-02-24 13:38 | ED.GENADUL_ITS ---
Discharge Plan Disposition Patient Disposition: Home Condition: Stable Discharge Details Clinical Impression: Pelvic pain Primary Care Provider: Carol Johnson ED Provider: Greg Pena Home Meds and New Rx's Prescriptions: Continued levalbuterol tartrate [Xopenex HFA] 45 mcg/actuation HFA aerosol inhaler 2 inh IH Q6H PRN (Reason: shortness of breath) Qty: 15 4RF escitalopram oxalate 10 mg tablet 10 mg PO DAILY Qty: 90 3RF pantoprazole 20 mg tablet,delayed release (DR/EC) 20 mg PO DAILY Qty: 90 3RF fluticasone propionate 50 mcg/actuation spray,suspension 2 spray intranasal DAILY PRN (Reason: allergy symptoms) Qty: 16 3RF Rx Instructions: administer into each nostril montelukast [Singulair] 10 mg tablet 10 mg PO QPM Qty: 90 3RF fluticasone furoate-vilanterol [Breo Ellipta] 200-25 mcg/dose blister with device 1 inh inhalation DAILY Qty: 60 4RF loratadine 10 mg tablet 10 mg PO DAILY PRN (Reason: allergy symptoms) Qty: 90 3RF amlodipine 10 mg tablet 10 mg PO DAILY Qty: 90 3RF Discharge Instructions Instructions: Pelvic Pain in Women (ED) Additional Instructions: Please take ibuprofen over the counter. Take 600mg by mouth every 6 hours as needed for pain. 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 Call tomorrow. Return to the ER immediately for any worsening or new concerning symptoms. Referrals: Carol Johnson NP [Primary Care Provider] - Esme Goncalves MD [ [facility] STAFF PHYSICIAN] - Discharge Data Discharge Date/Time-TO BE ENTERED AT DEPARTURE: 02/24/23 14:33 Medical Decision Making 1345 -- 42-year-old female here with left lower abdomen/pelvic pain over the past 3 weeks. Patient was seen by by Dr. Robles in women's wellness yesterday and there was plan for pelvic ultrasound. Given pain and tenderness, consider endometriosis versus ovarian torsion. Plan to obtain ultrasound as planned by gynecology. Labs including CBC and chemistry reviewed and nondiagnostic. I spoke with Dr. Monterroso, on-call gynecology, she will evaluate the patient. 1422 --ultrasound was interpreted by radiology: 2 cm left ovarian cyst. No free fluid. No torsion. Patient was seen by Dr. Monterroso who recommends discharge with outpatient follow-up. Patient noting significant proved after Tylenol IV. Dr. Monterroso recommends continued NSAID use. Usual and customary discharge instructions were reviewed with the patient. Lab Data Lab results reviewed: Yes I reviewed the patient's lab results. Labs: Laboratory Tests Range/Units 02/24/23 02/24/23 02/24/23 13:00 13:00 13:08 WBC (4.4-10.8) 10^3/uL 9.46 RBC (3.93-5.22) 10^6/uL 5.16 Hgb (11.2-15.7) g/dL 16.2 H Hct (36.0-46.0) % 47.0 H MCV (80-95) fL 91 MCH (27.0-33.0) pg 31.4 MCHC (32.0-36.0) % 34.5 RDW (11.7-14.6) % 12.6 Plt Count (130-400) 10^3/uL 293 MPV (8.0-11.0) fL 10.1 Immature Gran % 0.4 Neutrophils % 68.7 Lymphocytes % 23.9 Monocytes % 5.7 Eosinophils % 0.5 Basophils % 0.8 Nucleated RBC % (0.0-0.3) % 0.0 Absolute Neutrophils (1.2-6.7) 10^3/uL 6.49 Absolute Lymphocytes (1.2-3.4) 10^3/uL 2.26 Absolute Monocytes (0.1-0.8) 10^3/uL 0.54 Absolute Eosinophils (0.0-0.7) 10^3/uL 0.05 Absolute Basophils (0.0-0.2) 10^3/uL 0.08 Sodium (136-145) mmol/L 141 Potassium (3.5-5.1) mmol/L 3.5 Chloride (98-107) mmol/L 102 Carbon Dioxide (21.0-32.0) mmol/L 27.8 Anion Gap (3-11) mmol/L 11.2 H BUN (7-18) mg/dL 6 L Creatinine (0.55-1.02) mg/dL 1.0 Est GFR (CKD-EPI 2020) (mL/min/1.73m2) 71.69 Glucose (74-106) mg/dL 77 Calcium (8.5-10.1) mg/dL 9.2 Total Bilirubin (0.2-1.0) mg/dL 0.4 AST (15-37) U/L 19 ALT (14-59) U/L 21 Alkaline Phosphatase (46-116) U/L 99 Total Protein (6.4-8.2) g/dL 9.0 H Albumin (3.4-5.0) g/dL 4.6 Urine Color (Yellow) Yellow Urine Clarity (Clear) Clear Urine pH (5-8) 5.5 Ur Specific [place] (1.005-1.025) 1.010 Urine Protein (Negative) mg/dL Negative Urine Ketones (Negative) mg/dL Negative Urine Blood (Negative) Negative Urine Nitrite (Negative) Negative Urine Bilirubin (Negative) Negative Urine Urobilinogen (Up to 0.2) mg/dL 0.2 Ur Leukocyte Esterase (Negative) Negative Urine Glucose (Negative) mg/dL Negative HPI General Mode of arrival: ambulatory . Date/Time Provider Initiated Documentation: 02/24/23 12:33 . Limitations to Documentation: no limitations . Information obtained by: patient . HPI Narrative: 42-year-old female with history of endometriosis, status post hysterectomy remotely, here with chief complaint of pelvic pain. Patient notes pain in her left lower abdomen/pelvis over the past 3 weeks. Pain much worse over the past 4 days and now severe at times. She notes some improvement with pain when she pushes on the area. Worse after working all day. Patient was seen by women's wellness yesterday and there was plan for pelvic ultrasound. Patient comes in today with persistent pain. She has no associated fever. No loose stools. No urinary symptoms. No vaginal discharge or bleeding. Patient is sexually active with 1 long-term partner. She has no concerns for STDs. Related Data Home Medications Medication Instructions Recorded Confirmed levalbuterol tartrate 45 2 inh inhalation Q6H PRN shortness 02/03/22 03/09/23 mcg/actuation aerosol inhaler of breath #15 grams (Xopenex HFA) escitalopram oxalate 10 mg tablet 10 mg PO DAILY #90 tabs 10/18/22 03/09/23 pantoprazole 20 mg tablet,delayed 20 mg PO DAILY #90 tabs 12/13/22 03/09/23 release fluticasone propionate 50 2 spray intranasal DAILY PRN 12/23/22 03/09/23 mcg/actuation nasal allergy symptoms #16 grams spray,suspension montelukast 10 mg tablet 10 mg PO QPM #90 tabs 12/31/22 03/09/23 (Singulair) amlodipine 10 mg tablet 10 mg PO DAILY #90 tabs 02/23/23 03/09/23 fluticasone furoate 200 1 inh inhalation DAILY #60 ea 02/23/23 03/09/23 mcg-vilanterol 25 mcg/dose inhalation powder (Breo Ellipta) loratadine 10 mg tablet 10 mg PO DAILY PRN allergy 02/23/23 03/09/23 symptoms #90 tabs Previous Rx's Medication Instructions Recorded levalbuterol tartrate 45 2 inh inhalation Q6H PRN shortness 02/03/22 mcg/actuation aerosol inhaler of breath #15 grams (Xopenex HFA) escitalopram oxalate 10 mg tablet 10 mg PO DAILY #90 tabs 10/18/22 pantoprazole 20 mg tablet,delayed 20 mg PO DAILY #90 tabs 12/13/22 release fluticasone propionate 50 2 spray intranasal DAILY PRN 12/23/22 mcg/actuation nasal allergy symptoms #16 grams spray,suspension montelukast 10 mg tablet 10 mg PO QPM #90 tabs 12/31/22 (Singulair) amlodipine 10 mg tablet 10 mg PO DAILY #90 tabs 02/23/23 fluticasone furoate 200 1 inh inhalation DAILY #60 ea 02/23/23 mcg-vilanterol 25 mcg/dose inhalation powder (Breo Ellipta) loratadine 10 mg tablet 10 mg PO DAILY PRN allergy 02/23/23 symptoms #90 tabs Allergies Allergy/AdvReac Type Severity Reaction Status Date / Time doxycycline AdvReac Intermediate GI UPSET Verified 03/09/23 14:26 Influenza Virus Vaccines AdvReac Intermediate vomiting Verified 03/09/23 14:26 levocetirizine AdvReac Intermediate Rash Unverified 03/09/23 14:26 Birch Trees Allergy Mild Uncoded 03/09/23 14:26 Rabbits Allergy Mild Uncoded 03/09/23 14:26 General 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: 3 Review of Systems All systems reviewed & are unremarkable except as noted in HPI and below Constitutional Constitutional: Denies fever(s) Respiratory Respiratory: Reports as per HPI Gastrointestinal Gastrointestinal: Denies nausea and Denies vomiting Genitourinary Genitourinary: Denies abnormal vaginal bleeding, Denies difficulty voiding, Denies genital lesions and Denies vaginal discharge PFSH All Active Problems (Updated 02/24/23 @ 14:24 by Greg Pena MD) Allergic rhinitis (Chronic) Gastroesophageal reflux disease (Chronic) Hyperlipidemia (Chronic) Generalized anxiety disorder (Chronic) Moderate persistent asthma (Chronic) Cigarette smoker (Chronic) Essential hypertension (Chronic) Chronic right hip pain (Acute) Community acquired pneumonia (Acute) Facial rash (Acute) Pelvic pain (Acute) Medical History Depression Scoliosis Surgical History History of toe surgery (~01/2017) Right hallux exostectomy S/P appendectomy (08/12/05) S/P cholecystectomy (08/12/05) S/P hammer toe correction Right 5th toe S/P laparoscopic assisted vaginal hysterectomy (LAVH) (06/30/06) For AUB S/P left knee arthroscopy (~2005) x 2 Family History Mother Essential hypertension Depression Pernicious anemia Father , At 57 of heart failure Essential hypertension Heart disease Chronic obstructive lung disease Asthma Hyperlipidemia Brother Heart disease Daughter Asthma Daughter No problems noted. Maternal Grandfather Prostate cancer Maternal Grandmother , in her 60s Kassandra Gehrigs disease Paternal Grandfather , in his 50s Type 2 diabetes mellitus Paternal Grandmother , in her 60s Chronic obstructive lung disease Hyperlipidemia Social History Smoking/Tobacco Use Status: Current every day Tobacco Type: cigarettes Smoking packs per day: 0.5 Smoking cigarettes per day: 10.0 Years smoked: 24 Smoking pa ck-years: 12.00 Quit status: not considering quitting Second Hand Exposure: Yes Smoking risk assessment performed?: Yes Alcohol Intake: never Drug use: Occasionally Substance use type: marijuana Caregiver/Support person: No Household members: significant other Housing: house Communication Needs: None Do you need help understanding health information?: Never Pets and animals: Yes Pets and animals: cat(s) and dog(s) Sexually active: Yes Do you think of yourself as: straight/heterosexual Current gender identity: female What is your relationship status?: living with partner How often do you talk on the phone with friends or family?: three or more times per week How often do you get together with friends or relatives?: three or more times per week How often do you attend religion or restorationism services?: decline to answer Do you belong to any clubs or organized social groups?: no Panel score (0-1 are the most socially isolated patients): 2 What type of physical activity do you participate in: other Details: Work Special daina needs: No Seatbelt use: always Helmet use: Yes Helmet use: always Drive 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: No Do you feel safe at home: Yes Do you feel safe in your relationship?: Yes Female Reproductive History Menstrual Menopause type: surgical History History 2 Para Hx # Term Pregnancies Multiple births Hx # Pregnancies Ectopic pregnancies AB induced Hx Number of Living Children 2 AB spontaneous Exam Const General: cooperative and no acute distress HENMT Mouth: moist mucous membranes Eyes Conjunctivae: normal conjunctivae Sclera: normal sclerae Resp Auscultation: clear to auscultation bilaterally, no rales, no rhonchi and no wheezes Cardio Rate: regular rate and not tachycardic Rhythm: regular rhythm GI Palpation: soft, not firm, no guarding, no masses, not rigid and tender (Left lower abdomen/pelvis) Percussion: normal to percussion Auscultation: normal bowel sounds Skin General skin exam: no rashes or lesions noted Neuro General: patient alert, patient awake, patient oriented x3 and tone normal Extrem General: no edema Psych Appearance: grossly normal Mental Status: mental status grossly normal Course Vital Signs Vital signs: Vital Signs Temperature 37.3 C 02/24/23 12:00 Pulse 81 02/24/23 12:00 Respiratory Rate 18 02/24/23 12:00 Blood Pressure 142/97 H 02/24/23 12:00 Pulse Oximetry 100 02/24/23 12:00 Temperature 37.3 C 02/24/23 12:00 Temperature Source Temporal Artery Scan 02/24/23 12:00 Pulse 81 02/24/23 12:00 Respiratory Rate 18 02/24/23 12:00 Respiratory Effort Normal, Non-Labored 02/24/23 12:06 Blood Pressure 142/97 H 02/24/23 12:00 Blood Pressure Position Sitting 02/24/23 12:00 Pulse Oximetry 100 02/24/23 12:00 Oxygen Delivery Method Room Air 02/24/23 12:00 Oxygen Flow Rate 0 02/24/23 12:00 Pain Level 10 02/24/23 13:08 Lab/Test Results Lab/Test Results: Laboratory Tests Range/Units 02/24/23 02/24/23 02/24/23 13:00 13:00 13:08 WBC (4.4-10.8) 10^3/uL 9.46 RBC (3.93-5.22) 10^6/uL 5.16 Hgb (11.2-15.7) g/dL 16.2 H Hct (36.0-46.0) % 47.0 H MCV (80-95) fL 91 MCH (27.0-33.0) pg 31.4 MCHC (32.0-36.0) % 34.5 RDW (11.7-14.6) % 12.6 Plt Count (130-400) 10^3/uL 293 MPV (8.0-11.0) fL 10.1 Immature Gran % 0.4 Neutrophils % 68.7 Lymphocytes % 23.9 Monocytes % 5.7 Eosinophils % 0.5 Basophils % 0.8 Nucleated RBC % (0.0-0.3) % 0.0 Absolute Neutrophils (1.2-6.7) 10^3/uL 6.49 Absolute Lymphocytes (1.2-3.4) 10^3/uL 2.26 Absolute Monocytes (0.1-0.8) 10^3/uL 0.54 Absolute Eosinophils (0.0-0.7) 10^3/uL 0.05 Absolute Basophils (0.0-0.2) 10^3/uL 0.08 Sodium (136-145) mmol/L 141 Potassium (3.5-5.1) mmol/L 3.5 Chloride (98-107) mmol/L 102 Carbon Dioxide (21.0-32.0) mmol/L 27.8 Anion Gap (3-11) mmol/L 11.2 H BUN (7-18) mg/dL 6 L Creatinine (0.55-1.02) mg/dL 1.0 Est GFR (CKD-EPI 2020) (mL/min/1.73m2) 71.69 Glucose (74-106) mg/dL 77 Calcium (8.5-10.1) mg/dL 9.2 Total Bilirubin (0.2-1.0) mg/dL 0.4 AST (15-37) U/L 19 ALT (14-59) U/L 21 Alkaline Phosphatase (46-116) U/L 99 Total Protein (6.4-8.2) g/dL 9.0 H Albumin (3.4-5.0) g/dL 4.6 Urine Color (Yellow) Yellow Urine Clarity (Clear) Clear Urine pH (5-8) 5.5 Ur Specific [place] (1.005-1.025) 1.010 Urine Protein (Negative) mg/dL Negative Urine Ketones (Negative) mg/dL Negative Urine Blood (Negative) Negative Urine Nitrite (Negative) Negative Urine Bilirubin (Negative) Negative Urine Urobilinogen (Up to 0.2) mg/dL 0.2 Ur Leukocyte Esterase (Negative) Negative Urine Glucose (Negative) mg/dL Negative POC- Test(urine) Negative
[2023-02-24 14:30] VITALS: BP 134/88; PULSE 80; RESP 18; O2SAT 100
== END 2023-02-24 14:33 | disposition home or self-care (01) ==
PROVIDERS: Emergency Provider Student in an Organized Health Care Education/Training Program; PCP Nurse Practitioner Family
DX: R10.2 Pelvic and perineal pain (principal); N83.202 Unspecified ovarian cyst, left side; Z90.710 Acquired absence of both cervix and uterus; F17.210 Nicotine dependence, cigarettes, uncomplicated
CPT/HCPCS: 80053; 81025; 99284; 76830; 76856; 81003; 85025; 99283

== ENCOUNTER → 2023-09-27 01:23 | Outpatient (CLI) | payer OTHER, SELFPAY ==
--- NOTE | 2023-09-27 06:30 | DI.MAMMO_ITS ---
Exam(s) MAMMO SCREENING EXAM: MAMMO SCREENING CLINICAL HISTORY: screening,Z12.39 TECHNIQUE: Bilateral full field digital CC and MLO mammographic images were obtained with 3D tomosyn thesis and utilizing computer aided detection (CAD). COMPARISON: This is a baseline examination. FINDINGS: Masses/Architectural Distortion: None seen. Microcalcifications: No suspicious pleomorphic-type are seen. Skin Thickening/Nipple Retraction: None. IMPRESSION: 1. No significant interval change with no specific features of malignancy noted. 2. Unless there is more urgent need, screening mammography is recommended, as per [employer] guidelines. BI-RADS Category 1 - Negative Breast Density - Category C - Heterogeneously dense Breast density category C or D implies that the patient has dense breast tissue. Dense breast tissue is very common and is not abnormal but dense breast tissue can make it harder to find cancer on a ma mmogram. Also, dense breast tissue may increase their breast cancer risk. This information about the result of the mammogram report was provided to the patient to raise their awareness. Use this report when you speak with the patient about their risks for breast cancer, which includes their family hist ory. At that time, you may recommend for more screening tests (Ultrasound or MRI) as they might be us eful based on their risk. A negative radiographic report should not delay biopsy if a dominant or clinically suspicious mass is present. Up to ten percent of cancers are not identified on mammography. A negative report may reinforce clinical impression. Adenosis and dense breasts may obscure an underlying neoplasm. False positive reports average 6 to 10%. Patient will receive a letter notifying them of these results.
== END ==
PROVIDERS: PCP Nurse Practitioner Family; Visit Provider Nurse Practitioner Family
DX: Z12.31 Encounter for screening mammogram for malignant neoplasm of breast (principal)
CPT/HCPCS: 77063; 77067

== ENCOUNTER 2023-09-27 10:22 | Outpatient (CLI) | payer OTHER, SELFPAY ==
[2023-09-27 09:23] LABS: BUN 7 mg/dL (7-18); CREATININE 0.9 mg/dL (0.55-1.02); Chloride 107 mmol/L (98-107); Estimated GFR 81.35 (mL/min/1.73m2); Glucose 90 mg/dL (74-106); Potassium 3.4 mmol/L (3.5-5.1); Sodium 143 mmol/L (136-145)
[2023-09-27 19:19] LABS: Hepatitis C Ab w Rflx HCV PCR Negative (Negative)
== END 2023-09-27 10:23 | disposition home or self-care (01) ==
LOC: LBO 10:22
PROVIDERS: PCP Nurse Practitioner Family; Visit Provider Nurse Practitioner Family
DX: Z00.00 Encounter for general adult medical examination without abnormal findings (principal); I10 Essential (primary) hypertension; Z11.59 Encounter for screening for other viral diseases
CPT/HCPCS: 36415; 80048; 86803

== ENCOUNTER → 2024-03-19 01:59 | Outpatient (CLI) | payer OTHER, SELFPAY ==
--- NOTE | 2024-03-19 08:00 | DI.RAD_ITS ---
Exam(s) XR KNEE LT 3V AP,LAT,DANIEL EXAM: XR KNEE LT 3V AP,LAT,DANIEL CLINICAL HISTORY: left knee pain,injury,s89.92xa. TECHNIQUE: 2D digital imaging was performed. COMPARISON: No exams were available for comparison FINDINGS: 3 views No evidence of fracture or joint effusion. Medial compartment unremarkable. Lateral compartment exhibits moderate narrowing. Patellofemoral co mpartment exhibits mild degenerative change. IMPRESSION: Degenerative changes in the lateral compartment. No obvious joint effusion. DATA REPOSITORY: RADIATION DOSE DELIVERED:
== END ==
PROVIDERS: PCP Nurse Practitioner Family; Visit Provider Nurse Practitioner Family
DX: S89.92XA Unspecified injury of left lower leg, initial encounter (principal); M17.12 Unilateral primary osteoarthritis, left knee
CPT/HCPCS: 73562

== ENCOUNTER 2024-05-03 01:18 | Outpatient (CLI) | payer OTHER, SELFPAY ==
--- NOTE | 2024-05-03 07:00 | DI.MRI_ITS ---
Exam(s) MR LOWER JOINT LT WO EXAM: MR LOWER JOINT LT WO CLINICAL HISTORY: continued left knee pain S89.90XA INJURY LOWER LEG S89.92XA LEFT LEG TECHNIQUE: Multiplanar multisequence MRI of the knee was performed. COMPARISON: CR XR KNEE LT 3V AP,LAT,DANIEL from 03/19/2024 FINDINGS: EFFUSION: There is small amount of increased joint fluid. No evidence of prominent joint effusion or Pennington cyst in the popliteal fossa. MARROW:There is a nondisplaced fracture in the fibular head with T1 visible fracture lines in the yusef rounding bone edema, this finding not evident on recent plain films. There is also bone edema eviden t in the adjacent lateral tibial plateau. However, there does not appear to be fracture line within the tibial plateau. Incidentally noted is a degenerative subarticular cyst in the posterior aspect o f the lateral tibial plateau measuring 6 x 5 mm. No ominous osseous lesions. PATELLOFEMORAL COMPARTMENT: The quadriceps tendon is intact. The patellar ligament is intact. There is no significant thinning of the retropatellar cartilage. No evidence of fissure nor signific ant chondral defect. No osteochondral defect at this level.There is no intraosseous signal to sugges t recent patellar dislocation. There are no patellar retinacular tears. CRUCIATE LIGAMENTS: There is thinning of the anterior cruciate ligament but no high-grade tear.The po sterior cruciate ligament is intact. MEDIAL COMPARTMENT/MEDIAL MENISCUS: There are no tears of the medial meniscus evident.. There is significant degenerative thinning of articular cartilage over the medial femoral condyle. T here is no subarticular edema evident in the medial condyle. No osteophytes. MEDIAL COLLATERAL LIGAMENT: Intact LATERAL COMPARTMENT/LATERAL MENISCUS: There is significant irregularity of the posterior horn of the lateral meniscus. Suspect that this may be related to combination of tear and probable prior surgery -instrumentation. There are some degenerative changes in the lateral compartment noted including car tilage narrowing and marginal osteophytes. Is mild subarticular edema in the posterior weight-bearin g surface of the lateral femoral condyle. As described above there is a significant focus of bone ed von in the outer most aspect of the lateral tibial plateau which I suspect is related to the adjacent fracture in the fibular head. ILIOTIBIAL BAND: Intact LATERAL COLLATERAL LIGAMENT COMPLEX: There is some increased signal in the distal most biceps femora is tendon attachment at the fibular styloid level but no high-grade tear. There is no obvious tear o f the fibular collateral ligament at this level. The popliteus tendon component of the LCL complex i s intact. OTHER: There is edema signal within the lateral musculature around the fractured fibular head IMPRESSION: 1. There is a nondisplaced comminuted fracture of the fibular head evident on this MRI scan which is not visible on conventional knee x-rays of 03/19/2024. There is also bone edema within the adjacent outer aspect of the lateral tibial plateau but without an obvious tibial plateau fracture evident. 2. There is significant irregularity of the posterior horn of the lateral meniscus although the appea lani most probably reflects prior instrumentation/surgery of this structure. There are degenerative changes in the lateral compartment noted, also including small marginal osteophyte off the outer asp ect of the lateral femoral condyle. 3. Significant degenerative changes noted in the medial compartment but no evidence of medial meniscu s tear. No evidence of MCL tear. 4. The ACL is thinner than typical but without a high-grade tear evident. 5. The biceps femora wrists tendon at the attachment to the 5th fibular styloid exhibits some mild i ncreased signal but no high-grade tear and there is also no high-grade tear of the fibular collateral ligament component of the lateral collateral ligament complex which also inserts upon the fibular st yloid. 6. Medial collateral ligament appears unremarkable. 7. Patellofemoral compartment appears unremarkable. DATA REPOSITORY:
== END 2024-05-03 01:38 ==
LOC: DI 01:18
PROVIDERS: PCP Nurse Practitioner Family; Visit Provider Nurse Practitioner Family
DX: S89.90XA Unspecified injury of unspecified lower leg, initial encounter (principal); S89.92XA Unspecified injury of left lower leg, initial encounter; S82.455A Nondisplaced comminuted fracture of shaft of left fibula, initial encounter for closed fracture
CPT/HCPCS: 73721

== ENCOUNTER 2024-12-21 01:18 | Outpatient (CLI) | payer MEDICAID, SELFPAY ==
[2024-12-21 07:44] LABS: HGB 15.4 g/dL (11.2-15.7); MCV 91 fL (80-95); Platelet Count 290 10^3/uL (130-400); RBC 4.82 10^6/uL (3.93-5.22); RDW 12.5 % (11.7-14.6); RDW-SD 41.4 fL; WBC 14.11 10^3/uL (4.4-10.8)
[2024-12-21 09:01] LABS: Anion Gap 9.3 mmol/L (3-11); BUN 7 mg/dL (7-18); CO2 27.7 mmol/L (21.0-32.0); CREATININE 0.9 mg/dL (0.55-1.02); Calculated LDL 190 mg/dL (<100); Chloride 103 mmol/L (98-107); Cholesterol 244 mg/dL (<200); Estimated GFR 80.34 (mL/min/1.73m2); Glucose 92 mg/dL (74-106); HDL Cholesterol 32 mg/dL (>or=50); Potassium 3.3 mmol/L (3.5-5.1); Sodium 140 mmol/L (136-145); Triglyceride 110 mg/dL (<150)
[2024-12-24 11:22] LABS: HBs Antibody, Quant <3.1 mIU/mL (See Note); Hep B Surface Ab Negative (See Note); Hepatitis B Core Antibody Negative (Negative); Hepatitis B Surface Antigen Negative (Negative)
[2024-12-24 11:35] LABS: HIV-1/2 Ag & Ab Screen Negative (Negative)
== END 2024-12-21 01:19 | disposition home or self-care (01) ==
LOC: LBO 01:19
PROVIDERS: PCP Nurse Practitioner Family; Visit Provider Nurse Practitioner Family
DX: Z11.4 Encounter for screening for human immunodeficiency virus [HIV] (principal); E78.5 Hyperlipidemia, unspecified; I10 Essential (primary) hypertension; Z11.59 Encounter for screening for other viral diseases
CPT/HCPCS: 36415; 80048; 80061; 85027; 86704; 86706; 87340; 87389

== ENCOUNTER 2025-06-08 17:13 | Emergency (ER) | payer MEDICAID, SELFPAY ==
[2025-06-08 17:16] VITALS: BP 162/72; PULSE 65; RESP 18; TEMP 36.6; O2SAT 100
[2025-06-08 17:18] VITALS: BP 162/72; PULSE 67; RESP 18; TEMP 36.6; O2SAT 100
--- NOTE | 2025-06-08 17:28 | W.ED.GENAD ---
Discharge Plan Disposition Patient Disposition: Home Condition: Stable Discharge Details Clinical Impression: Acute serous otitis media of left ear Primary Care Provider: Carol Johnson ED Provider: Areli Romo Home Meds and New Rx's Prescriptions: New amoxicillin-pot clavulanate 875-125 mg tablet 1 tab PO BID 7 Days Qty: 14 0RF Rx Instructions: Please take 1 tablet twice daily for the next 7 days No Action (DME) Aerochamber MV Spacer See Rx Instructions .Route Qty: 10 0RF Rx Instructions: use with inhaler montelukast [Singulair] 10 mg tablet 10 mg PO QPM Qty: 90 3RF acetaminophen [Tylenol] 325 mg tablet 650 mg PO Q6H PRN ketoconazole 2 % shampoo 1 applic topical DAILY PRN (Reason: rash) Qty: 120 0RF Rx Instructions: Daily for 3 days, keep on affected areas for about 5 minutes then wash off. amlodipine 10 mg tablet 10 mg PO DAILY Qty: 90 3RF omeprazole 20 mg capsule,delayed release(DR/EC) 20 mg PO DAILY Qty: 90 3RF levocetirizine [Xyzal] 5 mg tablet 5 mg PO DAILY PRN (Reason: allergy symptoms) Qty: 90 3RF fluticasone furoate-vilanterol [Breo Ellipta] 200-25 mcg/dose blister with device 1 inh inhalation DAILY Qty: 90 3RF fluticasone propionate 50 mcg/actuation spray,suspension 2 spray intranasal DAILY PRN (Reason: allergy symptoms) Qty: 32 3RF Rx Instructions: administer into each nostril albuterol sulfate [Ventolin HFA] 90 mcg/actuation HFA aerosol inhaler 2 puff inhalation Q6H PRN (Reason: shortness of breath or wheezing) Qty: 6.7 12RF Discharge Instructions Instructions: Serous Otitis Media (DC) Additional Instructions: Please take the antibiotic with yogurt or probiotic as directed. You should start feeling better in the next 2 to 3 days. Please take Tylenol or Ibuprofen with food every 4-6 hours as needed for pain and swelling. Follow up with primary care provider in 3-5 days. Return to ED sooner if any worsening or concerns. Referrals: Carol Johnson NP [Primary Care Provider, Medicine] - 1 week Referral Note: ER follow-up call for an appointment HPI General Mode of arrival: ambulatory. Date/Time Provider Initiated Documentation: 06/08/25 17:14. Limitations to Documentation: no limitations. Information obtained by: patient, RN notes reviewed and old records reviewed. HPI Narrative: 44-year-old female presents to the ER with a chief complaint of left ear pain which is worsening. She has been taking ibuprofen with Sudafed with little to no relief. On exam she does have serous otitis media with bulging eardrum, no significant erythema or drainage no obvious perforated tympanic membrane. Right tympanic membrane within normal limits. Related Data Home Medications ?Medication ?Instructions ?Recorded ?Confirmed inhalational spacing device #10 ea 10/17/23 05/29/25 (Aerochamber MV spacer) acetaminophen 325 mg tablet 650 mg PO Q6H PRN 03/02/24 06/08/25 (Tylenol) amlodipine 10 mg tablet 10 mg PO DAILY #90 tabs 04/25/24 06/08/25 omeprazole 20 mg capsule,delayed 20 mg PO DAILY #90 caps 07/04/24 06/08/25 release levocetirizine 5 mg tablet (Xyzal) 5 mg PO DAILY PRN allergy symptoms 07/17/24 06/08/25 #90 tabs montelukast 10 mg tablet 10 mg PO QPM #90 tabs 09/24/24 06/08/25 (Singulair) fluticasone furoate 200 1 inh inhalation DAILY #90 ea 12/31/24 06/08/25 mcg-vilanterol 25 mcg/dose inhalation powder (Breo Ellipta) fluticasone propionate 50 2 spray intranasal DAILY PRN 01/28/25 06/08/25 mcg/actuation nasal allergy symptoms #32 grams spray,suspension albuterol sulfate 90 mcg/actuation 2 puff inhalation Q6H PRN 02/01/25 06/08/25 aerosol inhaler (Ventolin HFA) shortness of breath or wheezing #6.7 grams ketoconazole 2 % shampoo 1 applic topical DAILY PRN rash 05/29/25 06/08/25 #120 mL amoxicillin 875 mg-potassium 1 tab PO BID Otitis media 7 days 06/08/25 clavulanate 125 mg tablet #14 tabs Previous Rx's ?Medication ?Instructions ?Recorded inhalational spacing device #10 ea 10/17/23 (Aerochamber MV spacer) amlodipine 10 mg tablet 10 mg PO DAILY #90 tabs 04/25/24 omeprazole 20 mg capsule,delayed 20 mg PO DAILY #90 caps 07/04/24 release levocetirizine 5 mg tablet (Xyzal) 5 mg PO DAILY PRN allergy symptoms 07/17/24 #90 tabs montelukast 10 mg tablet 10 mg PO QPM #90 tabs 09/24/24 (Singulair) fluticasone furoate 200 1 inh inhalation DAILY #90 ea 12/31/24 mcg-vilanterol 25 mcg/dose inhalation powder (Breo Ellipta) fluticasone propionate 50 2 spray intranasal DAILY PRN 01/28/25 mcg/actuation nasal allergy symptoms #32 grams spray,suspension albuterol sulfate 90 mcg/actuation 2 puff inhalation Q6H PRN 02/01/25 aerosol inhaler (Ventolin HFA) shortness of breath or wheezing #6.7 grams ketoconazole 2 % shampoo 1 applic topical DAILY PRN rash 05/29/25 #120 mL amoxicillin 875 mg-potassium 1 tab PO BID Otitis media 7 days 06/08/25 clavulanate 125 mg tablet #14 tabs Allergies Allergy/AdvReac Type Severity Reaction Status Date / Time doxycycline AdvReac Intermediate GI UPSET Verified 06/08/25 17:20 Influenza Virus Vaccines AdvReac Intermediate vomiting Verified 06/08/25 17:20 levocetirizine AdvReac Intermediate Rash Verified 06/08/25 17:20 Birch Trees Allergy Mild Rash Uncoded 06/08/25 17:20 Rabbits Allergy Mild Runny nose Uncoded 06/08/25 17:20 General Stated Complaint: EarProblem WIN: 4 Exam HENMI Head: normal to inspection Ears: TM abnormal bulging on the left, wth effusion serous and with fluid behind the TM on the left Face and sinus: normal facial exam Mouth: oral mucosae normal, lip normal and tongue normal Teeth and gingiva: dentition normal Throat: posterior oropharynx normal Course Vital Signs Vital signs: Vital Signs Temperature 36.6 C 06/08/25 17:16 Pulse 65 06/08/25 17:16 Respiratory Rate 18 06/08/25 17:16 Blood Pressure 162/72 H 06/08/25 17:16 Pulse Oximetry 100 06/08/25 17:16 Temperature 36.6 C 06/08/25 17:18 Temperature Source Tympanic 06/08/25 17:16 Pulse 67 06/08/25 17:18 Respiratory Rate 18 06/08/25 17:18 Blood Pressure 162/72 H 06/08/25 17:18 Blood Pressure Position Sitting 06/08/25 17:16 Pulse Oximetry 100 06/08/25 17:18 Oxygen Delivery Method Room Air 06/08/25 17:18 Oxygen Flow Rate 0 06/08/25 17:18 Pain Level 10 06/08/25 17:18 Medical Decision Making 44-year-old female presents to the ER with a chief complaint of left ear pain which is worsening. She has been taking ibuprofen with Sudafed with little to no relief. On exam she does have serous otitis media with bulging eardrum, no significant erythema or drainage no obvious perforated tympanic membrane. Right tympanic membrane within normal limits. Acute left serous otits media, Augmentin given and 1 gm Tylenol. This text was generated using [employer] dictation system, please disregard any oddities of phrase or misspellings. PFSH All Active Problems (Updated 06/08/25 @ 17:28 by Areli Romo NP) Acute serous otitis media of left ear (Acute) Migraine headache (Chronic) Nondisplaced comminuted fracture of shaft of left fibula, subsequent encounter for closed fracture with routine healing (Acute ~03/2024) Asthma (Chronic) Allergic rhinitis (Chronic) Gastroesophageal reflux disease (Chronic) Hyperlipidemia (Chronic) Generalized anxiety disorder (Chronic) Cigarette smoker (Chronic) Essential hypertension (Chronic) Chronic right hip pain (Chronic) Medical History Scoliosis Depression Surgical History S/P laparoscopic assisted vaginal hysterectomy (LAVH) (06/30/06) For AUB S/P appendectomy (08/12/05) S/P hammer toe correction Right 5th toe S/P cholecystectomy (08/12/05) History of toe surgery (~01/2017) Right hallux exostectomy S/P left knee arthroscopy (~2005) x 2 Family History Mother Essential hypertension Depression Pernicious anemia Father , At 57 of heart failure Essential hypertension Heart disease Chronic obstructive lung disease Asthma Hyperlipidemia Brother Heart disease Daughter Asthma Daughter No problems noted. Maternal Grandfather Prostate cancer Maternal Grandmother , in her 60s Kassandra Gehrigs disease Paternal Grandfather , in his 50s Type 2 diabetes mellitus Paternal Grandmother , in her 60s Chronic obstructive lung disease Hyperlipidemia Social History (Updated 09/24/24 @ 15:47 by Sierra Goodman) Smoking/Tobacco Use Status: Current every day Tobacco Type: cigarettes Smoking packs per day: 0.5 Smoking cigarettes per day: 10.0 Years smoked: 27 Smoking pack-years: 13.50 Tobacco: How many years used: 28 Quit status: not considering quitting Second Hand Exposure: Yes Smoking risk assessment performed?: Yes Alcohol Intake: never Drug use: Occasionally Substance use type: marijuana Counseling given: No Caregiver/Support person: No Household members: significant other Housing: house Communication Needs: None Do you need help understanding health information?: Never Pets and animals: Yes Pets and animals: cat(s) and dog(s) Sexually active: Yes Do you think of yourself as: straight/heterosexual Current gender identity: female What is your relationship status?: living with partner How often do you talk on the phone with friends or family?: three or more times per week How often do you get together with friends or relatives?: three or more times per week How often do you attend oriental orthodox or yazidism services?: decline to answer Do you belong to any clubs or organized social groups?: no Panel score (0-1 are the most socially isolated patients): 2 What type of physical activity do you participate in: other Details: Work Special daina needs: No Seatbelt use: always Helmet use: Yes Helmet use: always 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
[2025-06-08] MEDS: Amox. 875/Clav. 125, 2 TABS/BTL 1 TAB PO (17:32)
[2025-06-08] MEDS: Amoxicillin 875/Clav. 125 TAB PO (17:32)
[2025-06-08] MEDS: Acetaminophen 500 MG TAB 1000 MG PO (17:33)
[2025-06-08 17:43] VITALS: BP 158/70
[2025-06-08] MEDS: Ciprofloxacin/Dexameth. 7.5 ML BTL AS (17:43)
== END 2025-06-08 17:49 | disposition home or self-care (01) ==
LOC: ER 18:48
PROVIDERS: Emergency Provider Registered Nurse Emergency; PCP Nurse Practitioner Family
DX: H65.02 Acute serous otitis media, left ear (principal); F17.210 Nicotine dependence, cigarettes, uncomplicated
CPT/HCPCS: 99283

== ENCOUNTER 2025-06-21 13:36 | Emergency (ER) | payer MEDICAID, SELFPAY ==
[2025-06-21 13:38] VITALS: BP 150/91; PULSE 77; RESP 18; TEMP 36.6; O2SAT 97
[2025-06-21 14:21] VITALS: BP 150/91; PULSE 77; RESP 18; TEMP 36.6; O2SAT 97
--- NOTE | 2025-06-24 18:44 | W.ED.GENAD ---
Discharge Plan Disposition Patient Disposition: Home Condition: Stable Discharge Details Clinical Impression: Ear pain, left Primary Care Provider: Carol Johnson ED Provider: No Bhatti Home Meds and New Rx's Prescriptions: New prednisone 20 mg tablet 40 mg PO ONCE Qty: 10 0RF Continued (DME) Aerochamber MV Spacer See Rx Instructions .Route Qty: 10 0RF Rx Instructions: use with inhaler montelukast [Singulair] 10 mg tablet 10 mg PO QPM Qty: 90 3RF acetaminophen [Tylenol] 325 mg tablet 650 mg PO Q6H PRN ketoconazole 2 % shampoo 1 applic topical DAILY PRN (Reason: rash) Qty: 120 0RF Rx Instructions: Daily for 3 days, keep on affected areas for about 5 minutes then wash off. omeprazole 20 mg capsule,delayed release(DR/EC) 20 mg PO DAILY Qty: 90 3RF levocetirizine [Xyzal] 5 mg tablet 5 mg PO DAILY PRN (Reason: allergy symptoms) Qty: 90 3RF fluticasone furoate-vilanterol [Breo Ellipta] 200-25 mcg/dose blister with device 1 inh inhalation DAILY Qty: 90 3RF fluticasone propionate 50 mcg/actuation spray,suspension 2 spray intranasal DAILY PRN (Reason: allergy symptoms) Qty: 32 3RF Rx Instructions: administer into each nostril albuterol sulfate [Ventolin HFA] 90 mcg/actuation HFA aerosol inhaler 2 puff inhalation Q6H PRN (Reason: shortness of breath or wheezing) Qty: 6.7 12RF amlodipine 10 mg tablet 10 mg PO DAILY Qty: 90 3RF Discharge Instructions Instructions: Fluid in the Ear ED Additional Instructions: With your blood pressure history as recommended that you stay away from oral decongestants so I would recommend Afrin nasal spray or phenylephrine nasal spray and use for the next 3 days twice daily Take the prednisone for the next several days as prescribed There is no evidence of persistent infection at this time Please return earlier should you have fever, chills, or with any new or worsening complaints Stand Alone Forms: Portal Information Discharge Data Discharge Date/Time-TO BE ENTERED AT DEPARTURE: 06/21/25 14:31 HPI General Date/Time Provider Initiated Documentation: 06/21/25 13:55. HPI Narrative: This 44-year-old female presents with report of difficulty hearing out of left ear. Patient completed course topical and oral antibiotics. She denies any pain. has not attempted decongestents. Related Data Home Medications Medication Instructions Recorded Confirmed inhalational spacing device #10 ea 10/17/23 05/29/25 (Aerochamber MV spacer) acetaminophen 325 mg tablet 650 mg PO Q6H PRN 03/02/24 06/21/25 (Tylenol) omeprazole 20 mg capsule,delayed 20 mg PO DAILY #90 caps 07/04/24 06/21/25 release levocetirizine 5 mg tablet (Xyzal) 5 mg PO DAILY PRN allergy symptoms 07/17/24 06/21/25 #90 tabs montelukast 10 mg tablet 10 mg PO QPM #90 tabs 09/24/24 06/21/25 (Singulair) fluticasone furoate 200 1 inh inhalation DAILY #90 ea 12/31/24 06/21/25 mcg-vilanterol 25 mcg/dose inhalation powder (Breo Ellipta) fluticasone propionate 50 2 spray intranasal DAILY PRN 01/28/25 06/21/25 mcg/actuation nasal allergy symptoms #32 grams spray,suspension albuterol sulfate 90 mcg/actuation 2 puff inhalation Q6H PRN 02/01/25 06/21/25 aerosol inhaler (Ventolin HFA) shortness of breath or wheezing #6.7 grams ketoconazole 2 % shampoo 1 applic topical DAILY PRN rash 05/29/25 06/21/25 #120 mL amlodipine 10 mg tablet 10 mg PO DAILY #90 tabs 06/17/25 06/21/25 prednisone 20 mg tablet 40 mg (2 x 20 mg) PO ONCE #10 tabs 06/21/25 Previous Rx's Medication Instructions Recorded inhalational spacing device #10 ea 10/17/23 (Aerochamber MV spacer) omeprazole 20 mg capsule,delayed 20 mg PO DAILY #90 caps 07/04/24 release levocetirizine 5 mg tablet (Xyzal) 5 mg PO DAILY PRN allergy symptoms 07/17/24 #90 tabs montelukast 10 mg tablet 10 mg PO QPM #90 tabs 09/24/24 (Singulair) fluticasone furoate 200 1 inh inhalation DAILY #90 ea 12/31/24 mcg-vilanterol 25 mcg/dose inhalation powder (Breo Ellipta) fluticasone propionate 50 2 spray intranasal DAILY PRN 01/28/25 mcg/actuation nasal allergy symptoms #32 grams spray,suspension albuterol sulfate 90 mcg/actuation 2 puff inhalation Q6H PRN 02/01/25 aerosol inhaler (Ventolin HFA) shortness of breath or wheezing #6.7 grams ketoconazole 2 % shampoo 1 applic topical DAILY PRN rash 05/29/25 #120 mL amlodipine 10 mg tablet 10 mg PO DAILY #90 tabs 06/17/25 prednisone 20 mg tablet 40 mg (2 x 20 mg) PO ONCE #10 tabs 06/21/25 Allergies Allergy/AdvReac Type Severity Reaction Status Date / Time doxycycline AdvReac Intermediate GI UPSET Verified 06/21/25 13:42 Influenza Virus Vaccines AdvReac Intermediate vomiting Verified 06/21/25 13:42 levocetirizine AdvReac Intermediate Rash Verified 06/21/25 13:42 Birch Trees Allergy Mild Rash Uncoded 06/21/25 13:42 Rabbits Allergy Mild Runny nose Uncoded 06/21/25 13:42 General Stated Complaint: EarProblem WIN: 3 Exam Narrative Exam Narrative: Left ear without evidence of infection, fluid noted posteriorly to TM Course Vital Signs Vital signs: Vital Signs Temperature 36.6 C 06/21/25 13:38 Pulse 77 06/21/25 13:38 Respiratory Rate 18 06/21/25 13:38 Blood Pressure 150/91 H 06/21/25 13:38 Pulse Oximetry 97 06/21/25 13:38 Temperature 36.6 C 06/21/25 14:21 Temperature Source Tympanic 06/21/25 14:21 Pulse 77 06/21/25 14:21 Respiratory Rate 18 06/21/25 14:21 Blood Pressure 150/91 H 06/21/25 14:21 Pulse Oximetry 97 06/21/25 14:21 Oxygen Delivery Method Room Air 06/21/25 14:21 Oxygen Flow Rate 0 06/21/25 14:21 Pain Level 0 06/21/25 14:21 Medical Decision Making Patient placed on prednisone and encouraged to take decongestants daily. She has a strict hypertension, I did recommend Afrin as a decongestent. return precautions reviewed and pt expressed understanding PFSH All Active Problems (Updated 06/21/25 @ 14:09 by NEIL Boyer) Ear pain, left (Acute) Acute serous otitis media of left ear (Acute) Migraine headache (Chronic) Nondisplaced comminuted fracture of shaft of left fibula, subsequent encounter for closed fracture with routine healing (Acute ~03/2024) Asthma (Chronic) Allergic rhinitis (Chronic) Gastroesophageal reflux disease (Chronic) Hyperlipidemia (Chronic) Generalized anxiety disorder (Chronic) Cigarette smoker (Chronic) Essential hypertension (Chronic) Chronic right hip pain (Chronic) Medical History Scoliosis Depression Surgical History S/P laparoscopic assisted vaginal hysterectomy (LAVH) (06/30/06) For AUB S/P appendectomy (08/12/05) S/P hammer toe correction Right 5th toe S/P cholecystectomy (08/12/05) History of toe surgery (~01/2017) Right hallux exostectomy S/P left knee arthroscopy (~2005) x 2 Family History Mother Essential hypertension Depression Pernicious anemia Father , At 57 of heart failure Essential hypertension Heart disease Chronic obstructive lung disease Asthma Hyperlipidemia Brother Heart disease Daughter Asthma Daughter No problems noted. Maternal Grandfather Prostate cancer Maternal Grandmother , in her 60s Kassandra Gehrigs disease Paternal Grandfather , in his 50s Type 2 diabetes mellitus Paternal Grandmother , in her 60s Chronic obstructive lung disease Hyperlipidemia Social History (Updated 09/24/24 @ 15:47 by Sierra Goodman) Smoking/Tobacco Use Status: Current every day Tobacco Type: cigarettes Smoking packs per day: 0.5 Smoking cigarettes per day: 10.0 Years smoked: 27 Smoking pack-years: 13.50 Tobacco: How many years used: 28 Quit status: not considering quitting Second Hand Exposure: Yes Smoking risk assessment performed?: Yes Alcohol Intake: never Drug use: Occasionally Substance use type: marijuana Counseling given: No Caregiver/Support person: No Household members: significant other Housing: house Communication Needs: None Do you need help understanding health information?: Never Pets and animals: Yes Pets and animals: cat(s) and dog(s) Sexually active: Yes Do you think of yourself as: straight/heterosexual Current gender identity: female What is your relationship status?: living with partner How often do you talk on the phone with friends or family?: three or more times per week How often do you get together with friends or relatives?: three or more times per week How often do you attend methodist or christianity services?: decline to answer Do you belong to any clubs or organized social groups?: no Panel score (0-1 are the most socially isolated patients): 2 What type of physical activity do you participate in: other Details: Work Special daina needs: No Seatbelt use: always Helmet use: Yes Helmet use: always 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
== END 2025-06-21 14:31 | disposition home or self-care (01) ==
PROVIDERS: Emergency Provider Physician Assistant; PCP Nurse Practitioner Family
DX: H92.02 Otalgia, left ear (principal)
CPT/HCPCS: 99283 ×2

== ENCOUNTER 2025-07-30 07:06 | Emergency (ER) | payer MEDICAID, SELFPAY ==
[2025-07-30 07:09] VITALS: BP 139/83; PULSE 78; RESP 18; TEMP 36.8; O2SAT 98
[2025-07-30 07:13] VITALS: BP 139/83; PULSE 78; RESP 18; TEMP 36.8; O2SAT 98
--- NOTE | 2025-07-30 07:29 | ED.GENADUL_ITS ---
Discharge Plan Disposition Patient Disposition: Home Discharge Details Clinical Impression: Viral URI with cough Primary Care Provider: Carol Johnson ED Provider: Rubio Kaur Home Meds and New Rx's Prescriptions: New promethazine-DM 6.25-15 mg/5 mL syrup 5 ml PO Q6H PRNQty: 118 0RF benzonatate 100 mg capsule 100 mg PO BID PRNQty: 7 0RF fluticasone propionate [Flonase Allergy Relief] 50 mcg/actuation spray,suspension 1 spray intranasal DAILY Qty: 16 0RF Rx Instructions: administer into each nostril Continued (DME) Aerochamber MV Spacer See Rx Instructions .Route Qty: 10 0RF Rx Instructions: use with inhaler montelukast [Singulair] 10 mg tablet 10 mg PO QPM Qty: 90 3RF acetaminophen [Tylenol] 325 mg tablet 650 mg PO Q6H PRN ketoconazole 2 % shampoo 1 applic topical DAILY PRN (Reason: rash) Qty: 120 0RF Rx Instructions: Daily for 3 days, keep on affected areas for about 5 minutes then wash off. omeprazole 20 mg capsule,delayed release(DR/EC) 20 mg PO DAILY Qty: 90 3RF levocetirizine [Xyzal] 5 mg tablet 5 mg PO DAILY PRN (Reason: allergy symptoms) Qty: 90 3RF fluticasone furoate-vilanterol [Breo Ellipta] 200-25 mcg/dose blister with device 1 inh inhalation DAILY Qty: 90 3RF fluticasone propionate 50 mcg/actuation spray,suspension 2 spray intranasal DAILY PRN (Reason: allergy symptoms) Qty: 32 3RF Rx Instructions: administer into each nostril albuterol sulfate [Ventolin HFA] 90 mcg/actuation HFA aerosol inhaler 2 puff inhalation Q6H PRN (Reason: shortness of breath or wheezing) Qty: 6.7 12RF amlodipine 10 mg tablet 10 mg PO DAILY Qty: 90 3RF Discharge Instructions Additional Instructions: You were seen in the emergency department for your cough. You will receive a call if your COVID swab is positive. Please take the supportive medications that have been sent to your pharmacy. If your symptoms worsen if you cannot eat or drink or if you develop any shortness of breath please return to the emergency department. For your pain please take medications as follows: 1. Take acetaminophen (Tylenol), 650 mg every 6 hours [2. Take ibuprofen (Advil), 400 mg every 6 hours.] Stand Alone Forms: Portal Information, Work Release Discharge Data Discharge Date/Time-TO BE ENTERED AT DEPARTURE: 07/30/25 08:30 HPI General Date/Time Provider Initiated Documentation: 07/30/25 07:29 . HPI Narrative: MDM This is an overall quite well-appearing normothermic and not tachycardic 44-year-old female with myalgias cough chills most consistent with viral syndrome. No pain out of proportion to suggest necrotizing soft tissue infection. Uvula midline so not suspicious for peritonsillar abscess. No nuchal rigidity to suggest meningitis. No dysuria or frequency to suggest UTI. Patient has not been vomiting to suggest increased risk for subdural empyema. No chiropractic manipulation to suggest increased risk for cervical arterial dissection. No generator exposure make my suspicion lower for car monoxide toxicity. Headache was not sudden onset to suggest subarachnoid hemorrhage. Patient is not on any hormone therapy to suggest increased risk for cerebral venous sinus thrombosis. No hypoxia tachycardia or fevers and clear breath sounds labs resulted do not feel patient requires chest x-ray at this point. Patient I discussed that she should return to the ED if she had difficulty eating and drinking or if she developed any worsening shortness of breath. She had no significant wheezes to suggest exacerbation of her reactive airway disease. I provided the patient with a work note prescription for cough syrup benzonatate and Flonase. Patient understood return indications discharged with an empiric trial of expectant outpatient management. 2:30 PM Late charting due to patient care. Patient's respiratory viral swab was negative. HPI This is a patient with a history of allergies and asthma presenting with body aches, cough, and headache. The patient reports experiencing body aches, a persistent cough that worsens when lying down, and a headache described as feeling like being hit with a hammer. The headache started on one side and then moved to the other side late last night. The coughing began yesterday and has progressively worsened. The patient was up every hour last night due to the cough. The patient has been using a rescue inhaler more frequently over the past day but reports no relief from the burning sensation in the throat. The patient is uncertain about having a fever due to a broken thermometer at home but notes feeling hot during coughing episodes. 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 The patient reports no chest pain, vomiting, or painful urination. The patient also reports no recent chiropractic manipulations or sleeping with a generator. The patient reports no diarrhea or abdominal pain but mentions abdominal discomfort due to coughing. The patient took Tylenol at 3:00 AM and 4:00 AM, which alleviated the headache, leaving only a dull ache. Exam General: Well-appearing in no acute distress speaking in complete sentences. Head: Normocephalic, atraumatic. Eye: Extraocular eye movements intact. No conjunctival injection. No scleral icterus. Ear, nose, mouth, throat: Grossly normal inspection. Normal voice, handling secretions normally. No significant posterior oropharynx erythema. Uvula midline. No nuchal rigidity. Neck: Trachea midline. Cardiovascular: Well-perfused distal extremities. Respiratory: Nonlabored respiration. Clear lungs bilaterally. No wheezes. Gastrointestinal: Nondistended abdomen. Musculoskeletal: No edema. Moving all 4 extremities spontaneously. Skin: Normal for age and race, grossly normal temperature and turgor. No acute rash. Neurologic: Alert and appropriate, no apparent acute deficits. Related Data Home Medications ?Medication ?Instructions ?Recorded ?Confirmed inhalational spacing device #10 ea 10/17/23 07/30/25 (Aerochamber MV spacer) acetaminophen 325 mg tablet 650 mg PO Q6H PRN 03/02/24 07/30/25 (Tylenol) omeprazole 20 mg capsule,delayed 20 mg PO DAILY #90 ca ps 07/04/24 07/30/25 release levocetirizine 5 mg tablet (Xyzal) 5 mg PO DAILY PRN a llergy symptoms 07/17/24 07/30/25 #90 tabs montelukast 10 mg tablet 10 mg PO QPM #90 tabs 07/30/25 (Singulair) fluticasone furoate 200 1 inh inhalation DAILY #90 e a 12/31/24 07/30/25 mcg-vilanterol 25 mcg/dose inhalation powder (Breo Ellipta) fluticasone propionate 50 2 spray intranasal DAILY PRN 01/28/25 07/30/25 mcg/actuation nasal allergy symptoms #32 grams spray,suspension albuterol sulfate 90 mcg/actuation 2 puff inhalation Q 6H PRN 02/01/25 07/30/25 aerosol inhaler (Ventolin HFA) shortness of breath or wheezing #6.7 grams ketoconazole 2 % shampoo 1 applic topical DAILY PRN r fabrizio 05/29/25 07/30/25 #120 mL amlodipine 10 mg tablet 10 mg PO DAILY #90 tabs 11/0 11/0607/30/25 benzonatate 100 mg capsule 100 mg PO BID PRN #7 caps 1 09/30/24 fluticasone propionate 50 1 spray intranasal DAILY #16 grams 07/30/25 mcg/actuation nasal spray,suspension (Flonase Allergy Relief) promethazine-DM 6.25 mg-15 mg/5 mL 5 ml PO Q6H PRN #11 8 mL 07/30/25 oral syrup Previous Rx's ?Medication ?Instructions ?Recorded inhalational spacing device #10 ea 10/17/23 (Aerochamber MV spacer) omeprazole 20 mg capsule,delayed 20 mg PO DAILY #90 ca ps 07/04/24 release levocetirizine 5 mg tablet (Xyzal) 5 mg PO DAILY PRN a llergy symptoms 07/17/24 #90 tabs montelukast 10 mg tablet 10 mg PO QPM #90 tabs (Singulair) fluticasone furoate 200 1 inh inhalation DAILY #90 e a 12/31/24 mcg-vilanterol 25 mcg/dose inhalation powder (Breo Ellipta) fluticasone propionate 50 2 spray intranasal DAILY PRN 01/28/25 mcg/actuation nasal allergy symptoms #32 grams spray,suspension albuterol sulfate 90 mcg/actuation 2 puff inhalation Q 6H PRN 02/01/25 aerosol inhaler (Ventolin HFA) shortness of breath or wheezing #6.7 grams ketoconazole 2 % shampoo 1 applic topical DAILY PRN r fabrizio 05/29/25 #120 mL amlodipine 10 mg tablet 10 mg PO DAILY #90 tabs 110 11/06 benzonatate 100 mg capsule 100 mg PO BID PRN #7 caps 1 09/30/24 fluticasone propionate 50 1 spray intranasal DAILY #16 grams 07/30/25 mcg/actuation nasal spray,suspension (Flonase Allergy Relief) promethazine-DM 6.25 mg-15 mg/5 mL 5 ml PO Q6H PRN #11 8 mL 07/30/25 oral syrup Allergies Allergy/AdvReac Type Severity Reaction Status Date / Time doxycycline AdvReac Intermediate GI UPSET Verified 07/30/25 07:12 Influenza Virus Vaccines AdvReac Intermediate vomiting Verified 07/30/25 07:12 levocetirizine AdvReac Intermediate Rash Verified 07/30/25 07:12 Birch Trees Allergy Mild Rash Uncoded 07/30/25 07:12 Rabbits Allergy Mild Runny nose Uncoded 07/30/25 07:12 General Stated Complaint: RespSymp WIN: 4 Course Vital Signs Vital signs: Vital Signs Temperature 36.8 C 07/30/25 07:09 Pulse 78 07/30/25 07:09 Respiratory Rate 18 07/30/25 07:09 Blood Pressure 139/83 07/30/25 07:09 Pulse Oximetry 98 07/30/25 07:09 Temperature 36.8 C 07/30/25 07:13 Pulse 78 07/30/25 07:13 Respiratory Rate 18 07/30/25 07:13 Respiratory Effort Normal, Non-Labored 07/30/25 07:21 Respiratory Depth Normal 07/30/25 07:21 Blood Pressure 139/83 07/30/25 07:13 Pulse Oximetry 98 07/30/25 07:13 PFSH All Active Problems (Updated 07/30/25 @ 07:54 by Rubio Kaur MD) Viral URI with cough (Acute) Migraine headache (Chronic) Nondisplaced comminuted fracture of shaft of left fibula, subsequent encounter for closed fracture with routine healing (Acute ~03/2024) Asthma (Chronic) Allergic rhinitis (Chronic) Gastroesophageal reflux disease (Chronic) Hyperlipidemia (Chronic) Generalized anxiety disorder (Chronic) Cigarette smoker (Chronic) Essential hypertension (Chronic) Chronic right hip pain (Chronic) Medical History Scoliosis Depression Surgical History S/P laparoscopic assisted vaginal hysterectomy (LAVH) (06/30/06) For AUB S/P appendectomy (08/12/05) S/P hammer toe correction Right 5th toe S/P cholecystectomy (08/12/05) History of toe surgery (~01/2017) Right hallux exostectomy S/P left knee arthroscopy (~2005) x 2 Family History Mother Essential hypertension Depression Pernicious anemia Father , At 57 of heart failure Essential hypertension Heart disease Chronic obstructive lung disease Asthma Hyperlipidemia Brother Heart disease Daughter Asthma Daughter No problems noted. Maternal Grandfather Prostate cancer Maternal Grandmother , in her 60s Kassandra Gehrigs disease Paternal Grandfather , in his 50s Type 2 diabetes mellitus Paternal Grandmother , in her 60s Chronic obstructive lung disease Hyperlipidemia Social History (Updated 09/24/24 @ 15:47 by Sierra Goodman) Smoking/Tobacco Use Status: Current every day Tobacco Type: cigarettes Smoking packs per day: 0.5 Smoking cigarettes per day: 10.0 Years smoked: 27 Smoking pack-years: 13.50 Tobacco: How many years used: 28 Quit status: not considering quitting Second Hand Exposure: Yes Smoking risk assessment performed?: Yes Alcohol Intake: never Drug use: Occasionally Substance use type: marijuana Counseling given: No Caregiver/Support person: No Household members: significant other Housing: house Communication Needs: None Do you need help understanding health information?: Never Pets and animals: Yes Pets and animals: cat(s) and dog(s) Sexually active: Yes Do you think of yourself as: straight/heterosexual Current gender identity: female What is your relationship status?: living with partner How often do you talk on the phone with friends or family?: three or more times per week How often do you get together with friends or relatives?: three or more times per week How often do you attend uatsdin or yazidi services?: decline to answer Do you belong to any clubs or organized social groups?: no Panel score (0-1 are the most socially isolated patients): 2 What type of physical activity do you participate in: other Details: Work Special daina needs: No Seatbelt use: always Helmet use: Yes Helmet use: always Drive intox or ride w/intox jinrikisha driver: No Do you feel safe at home: Yes Do you feel safe in your relationship?: Yes Female Reproductive History Menstrual Menopause type: surgical History History 2 Para Hx # Term Pregnancies Multiple births Hx # Pregnancies Ectopic pregnancies AB induced Hx Number of Living Children 2 AB spontaneous
[2025-07-30 08:13] LABS: COVID-19 PCR Negative (Negative); RSV PCR Negative (Negative)
[2025-07-30 08:17] VITALS: BP 121/68; PULSE 70; O2SAT 98
[2025-07-30] MEDS: Ibuprofen 600 MG TAB PO (08:21)
[2025-07-30] MEDS: Acetaminophen 325 MG TAB 650 MG PO (08:21)
== END 2025-07-30 08:30 | disposition home or self-care (01) ==
PROVIDERS: Emergency Provider Emergency Medicine; PCP Nurse Practitioner Family
DX: J06.9 Acute upper respiratory infection, unspecified (principal); B97.89 Other viral agents as the cause of diseases classified elsewhere; R05.9 Cough, unspecified; I10 Essential (primary) hypertension; E78.5 Hyperlipidemia, unspecified; F17.210 Nicotine dependence, cigarettes, uncomplicated
CPT/HCPCS: 87637; 99283

== ENCOUNTER → 2025-08-05 10:58 | Outpatient (CLI) | payer MEDICAID, SELFPAY ==
--- NOTE | 2025-08-05 10:45 | DI.RAD_ITS ---
Exam(s) XR CHEST 2V PA LATERAL EXAM: XR CHEST 2V PA LATERAL CLINICAL HISTORY: cough,exac of asthma,j45.901. TECHNIQUE: 2D digital imaging was performed. COMPARISON: CR XR CHEST 2V PA LATERAL from 09/05/2019 FINDINGS: 2 views: Heart size is normal. The mediastinum is not widened. Lungs are clear. No infiltrates nor pleural effusions. IMPRESSION: No acute pulmonary findings. DATA REPOSITORY: RADIATION DOSE DELIVERED:
== END ==
LOC: DI 10:58
PROVIDERS: PCP Nurse Practitioner Family; Visit Provider Nurse Practitioner Family
DX: J45.901 Unspecified asthma with (acute) exacerbation (principal)
CPT/HCPCS: 71046

== ENCOUNTER 2025-08-05 10:59 | Outpatient (CLI) | payer MEDICAID, SELFPAY ==
[2025-08-05 14:27] LABS: Abs Immature Grans 0.01 10^3/uL (0.0-0.06); HCT 42.2 % (36.0-46.0); HGB 14.8 g/dL (11.2-15.7); Immature Grans % 0.1 %; MCH 31.9 pg (27.0-33.0); MCHC 35.1 % (32.0-36.0); MCV 91 fL (80-95); MPV 10.9 fL (8.0-11.0); Platelet Count 238 10^3/uL (130-400); RBC 4.64 10^6/uL (3.93-5.22); RDW 12.7 % (11.7-14.6); RDW-SD 42.5 fL; WBC 6.84 10^3/uL (4.4-10.8)
[2025-08-05 15:48] LABS: ALT 37 U/L (10-49); AST 27 U/L (<34); Albumin 4.4 g/dL (3.2-5.0); Alkaline Phosphatase 112 U/L (46-116); Anion Gap 5.4 mmol/L (3-11); BUN 6 mg/dL (9-23); Bilirubin, Total 0.4 mg/dL (0.2-1.2); CO2 30.6 mmol/L (20.0-31.0); Calcium 9.1 mg/dL (8.3-10.6); Chloride 107 mmol/L (98-107); Cholesterol 180 mg/dL (<200); Glucose 96 mg/dL (74-106); HDL Cholesterol 32 mg/dL (>or=50); Potassium 2.9 mmol/L (3.5-5.1); Sodium 143 mmol/L (136-145); Total Protein 7.2 g/dL (5.7-8.2)
== END 2025-08-05 11:00 | disposition home or self-care (01) ==
LOC: LBO 10:59
PROVIDERS: PCP Nurse Practitioner Family; Visit Provider Nurse Practitioner Family
DX: E78.5 Hyperlipidemia, unspecified (principal); J45.901 Unspecified asthma with (acute) exacerbation
CPT/HCPCS: 36415; 80053; 80061; 85025

== ENCOUNTER 2025-08-14 09:31 | Outpatient (CLI) | payer MEDICAID, SELFPAY ==
[2025-08-14 16:13] LABS: Anion Gap 7.5 mmol/L (3-11); BUN 11 mg/dL (9-23); CO2 25.5 mmol/L (20.0-31.0); Calcium 9.2 mg/dL (8.3-10.6); Chloride 108 mmol/L (98-107); Glucose 96 mg/dL (74-106); Potassium 3.6 mmol/L (3.5-5.1); Sodium 141 mmol/L (136-145)
== END 2025-08-14 09:32 | disposition home or self-care (01) ==
LOC: LBO 09:33
PROVIDERS: PCP Nurse Practitioner Family; Visit Provider Nurse Practitioner Family
DX: E87.6 Hypokalemia (principal)
CPT/HCPCS: 36415; 80048